=== PATIENT | female | born 1950 | race Caucasian/White ===

== ENCOUNTER 2016-11-12 06:21 | Inpatient (IN) | payer BC ==
--- NOTE | 2016-11-08 14:59 | HP ---
HISTORY AND PHYSICAL: DATE OF OFFICE VISIT: 11/08/16 DATE OF SURGERY: 11/12/16 SURGEON: Virginia Hager MD PROCEDURE: Left total knee arthroplasty CHIEF COMPLAINT: Left knee pain. HISTORY OF PRESENT ILLNESS: Ms. Johnson is a 65-year-old female with complaints of left knee pain. She has failed conservative management. She has elected to proceed with a left total knee arthrop lasty. The surgery is scheduled for 11/12/16. PAST MEDICAL HISTORY: Hypothyroidism. PAST SURGICAL HISTORY: Tonsillectomy, partial thyroidectomy, total hysterectomy, cataract removal. CURRENT MEDICATIONS: 1. Synthroid. 2. Aleve. 3. Pepcid. ALLERGIES: To COMPAZINE. FAMILY HISTORY: Unknown. She is adopted. SOCIAL HISTORY: This is a 65-year-old female, she is . She works as a counselor. She denie s use of drugs and alcohol. She does not smoker. REVIEW OF SYSTEMS: A complete 14-point review of systems was reviewed with the patient, positive fo r hypothyroidism. PHYSICAL EXAMINATION GENERAL: Well-developed, well-nourished, she is in no acute distress. She is alert and oriented x3 . VITAL SIGNS: She stands 5 feet 8 inches tall, weighs 160 pounds. Her blood pressure is 128/84, hea rt rate 65. HEENT: Normocephalic, atraumatic. NECK: Supple. No palpable lymph nodes. Trachea is midline. PULMONARY: Lungs are clear to auscultation bilaterally. CARDIO: Regular rate and rhythm. ABDOMEN: Soft, nontender, nondistended. MUSCULOSKELETAL: Left lower extremity, the skin is intact. There is moderate joint effusion. She has tenderness over the medial and lateral joint line. She has full range of motion of the left kne e. Lower extremity muscle group strengths were intact at 5/5. She has 2+ dorsalis pedis pulses. NEUROLOGIC: Cranial nerves II to XII are intact. ASSESSMENT AND PLAN: Ms. Johnson is a 65-year-old female with complaints of left knee pain second priscilla to advanced osteoarthritis. She has failed conservative management and has elected to proceed w ith a left total knee arthroplasty,which is scheduled for 11/12/[address] Hager discus sed the risks and benefits of the surgery at today's visit and all of her questions were answered. Percocet, Colace and Coumadin were sent to her pharmacy for postoperative pain control and DVT proph ylaxis. She will see Dr. Hager back 2 weeks after the surgery. SEAN GALARZA [id number]/[facility] #: [id number]
[~2016-11-12 06:21] MED LIST: Buffered Lidocaine 1% SYRIN* 3 ML/SYR SYRINGE INTRADERM ONE; Dexamethasone IV* 4 MG/ML 1 ML (4 MG) IV SLOW PU ONE; Ondansetron INJ* 2 MG/ML VIAL IV ONE
[2016-11-12] MEDS ORDERED: ceFAZolin 2 GM PREMIX(*) 2 GM/50 ML BAG IVPB ONE (07:14)
[2016-11-12] MEDS ORDERED: Dexamethasone IV* 4 MG/ML 1 ML (4 MG) ONE (07:14)
[2016-11-12] MEDS ORDERED: Ondansetron INJ* 2 MG/ML VIAL ONE (07:14)
[2016-11-12] MEDS ORDERED: Propofol* 500 MG/50 ML BTL ONE (07:49)
[2016-11-12] MEDS ORDERED: Dexmedetomidine* 200 MCG/2 ML 2 ML VIAL ONE ×2 (07:51→08:11)
[2016-11-12] MEDS ORDERED: Midazolam* 1 MG/ML 2 ML VIAL (2 MG) ONE ×2 (07:54→09:06)
[2016-11-12] MEDS ORDERED: HYDROmorphone* 1 MG/ML 1 ML SYR ONE ×4 (07:54→12:07)
[2016-11-12] MEDS ORDERED: Meperidine SYRINGE* 50 MG/ML ONE (07:54)
[2016-11-12] MEDS ORDERED: fentaNYL* 50 MCG/ML 2 ML VIAL (100 MCG VIAL) ONE ×4 (07:54→10:31)
[2016-11-12] MEDS ORDERED: Morphine PF AMP (0.5MG/ML)* 5 MG/10 ML AMP ONE (07:55)
[2016-11-12] MEDS ORDERED: Bupivacaine 0.5% SDV PF* 30 ML VIAL ONE (08:11)
[2016-11-12] MEDS ORDERED: HYDROmorphone* 1 MG/ML 1 ML SYR IV PRN (08:24)
[2016-11-12] MEDS ORDERED: Ondansetron INJ* 2 MG/ML VIAL IV PRN ×2 (08:24→12:10)
[2016-11-12] MEDS ORDERED: fentaNYL* 50 MCG/ML 2 ML VIAL (100 MCG VIAL) IV PRN (08:24)
[2016-11-12] MEDS ORDERED: DiMENhydriNATE IV* 50 MG/ML VIAL IV PUSH PRN ×2 (08:24→12:10)
[2016-11-12] MEDS ORDERED: Scopolamine 1.5 mg* PATCH TRANSDERM PRN ×2 (08:24→12:10)
[2016-11-12] MEDS ORDERED: Magnesium Hydroxide LIQ* 30 ML UDC PO PRN (10:50)
[2016-11-12] MEDS ORDERED: LACTULOSE* 30 ML UDC PO PRN (10:50)
[2016-11-12] MEDS ORDERED: Polyethylene Glycol 3350* 17 GM PACKET PO PRN (10:50)
[2016-11-12] MEDS ORDERED: Bisacodyl SUPP* 10 MG SUPP PR PRN (10:50)
[2016-11-12] MEDS ORDERED: Propofol* 10 MG/ML 20 ML BTL IV PUSH ONE (11:00)
[2016-11-12] MEDS ORDERED: Lidocaine 2% PF * 5 ML VIAL ONE (11:01)
[2016-11-12] MEDS ORDERED: Sevoflurane* 1 BTL ONE (11:33)
[2016-11-12] MEDS ORDERED: oxyCODONE/Acetamin 5/325 MG* TAB PO PRN (12:10)
[2016-11-12] MEDS ORDERED: Nalbuphine* 20 MG/ML 1 ML VIAL IV PRN (12:10)
[2016-11-12] MEDS ORDERED: diPHENhydraMINE IV* 50 MG/ML 1 ml VIAL (BENADRYL) IV PRN ×2 (12:10→21:10)
[2016-11-12] MEDS ORDERED: Naloxone* 0.4 MG/ML 1 ML VIAL IV PRN (12:10)
--- NOTE | 2016-11-12 13:13 | RAD ---
INDICATION: Left total knee replacement surgery. COMPARISON: Comparison is made with a prior x-ray study of the left knee from July 29 2016. TECHNIQUE: 2 views of the left knee were obtained. FINDINGS: The patient is status post total left knee replacement surgery. The bones and prostheses are in normal alignment. There is a surgical drain present along the anterior aspect of the knee. IMPRESSION: STATUS POST TOTAL LEFT KNEE REPLACEMENT SURGERY.
[2016-11-12] MEDS: Famotidine TAB* 20 MG PO SCH ×2 (16:55→21:17)
[2016-11-12] MEDS ORDERED: Warfarin TAB(*) 6 MG PO ONE (17:00)
[2016-11-12] MEDS: ceFAZolin 1 GM in Dextrose (*) 1 GM/50 ML BAG IVPB SCH (17:02)
[2016-11-12] MEDS ORDERED: Ondansetron TAB* 4 MG PO PRN (21:10)
[2016-11-12] MEDS ORDERED: Acetaminophen TAB* 325 MG PO PRN (21:10)
[2016-11-12] MEDS: Docusate CAP* 100 MG PO SCH (21:18)
[2016-11-12] MEDS ORDERED: Warfarin TAB(*) 2 MG PO ONE (21:58)
[2016-11-12] MEDS: oxyCODONE/Acetamin 5/325 MG* TAB PO PRN (23:21)
[2016-11-13] MEDS: Morphine INJ* 2 MG/ML 1 ML SYRINGE IV PRN ×2 (01:13→14:42)
[2016-11-13] MEDS: ceFAZolin 1 GM in Dextrose (*) 1 GM/50 ML BAG IVPB SCH ×2 (01:17→09:22)
[2016-11-13] MEDS: oxyCODONE/Acetamin 5/325 MG* TAB PO PRN ×5 (03:11→23:18)
[2016-11-13] MEDS: Levothyroxine TAB* 75 MCG TAB PO SCH (05:59)
[2016-11-13 06:00] LABS: Hematocrit 35 % (35-47); Hemoglobin 11.3 g/dl (12.0-16.0)
[2016-11-13 06:24] LABS: Calcium 8.7 mg/dL (8.6-10.3); EGFR African American 121.6 (>60); EGFR Non-African American 94.5 (>60); Potassium 3.9 mmol/L (3.5-5.0)
--- NOTE | 2016-11-13 06:53 | OP ---
OPERATIVE NOTE: DATE OF OPERATION: 11/12/16 DATE OF : 48 ATTENDING SURGEON: Virginia Hager MD DRY PAN OPERATOR: SEAN Montgomery This assistant research scientist did help throughout the procedure for prepping, draping, retraction, manipulation of the leg, and wound closure. ANESTHESIOLOGIST: Hugh Schaefer MD ANESTHESIA: Spinal with adductor nerve block. PRE-OP DIAGNOSIS: Severe end-stage degenerative osteoarthritis of the left knee joint with valgus d eformity. POST-OP DIAGNOSIS: Severe end-stage degenerative osteoarthritis of the left knee joint with valgus deformity. OPERATIVE PROCEDURE: Left total knee arthroplasty. COMPLICATIONS: None. ESTIMATED BLOOD LOSS: 250 cc. TOURNIQUET TIME: 69 minutes. SPECIMEN: Bone and cartilage from the left knee joint, sent to pathology. HARDWARE USED: This is Schaefer and Nephew cemented total knee arthroplasty hardware. For the femur, a size 6, left posterior stabilized, narrow Oxinium Legion femoral component. For the tibia, a size 5 left tibial base plate. For the insert, a 13- mm constrained articular insert, size 5-6. For the patella, a 32-mm 3-peg all-poly patella. BRIEF HISTORY/INDICATION: Ms. Johnson is a 65-year-old female with years of increasingly severe le ft knee pain. She failed conservative treatment with antiinflammatories, pain medications, intraart icular injections, physical therapy, and brace wear. She developed increasingly severe valgus defor mity as well. Radiographs showed severe end-stage arthritis with [id number] contacts on the latera l compartment and valgus deformity. Due to continued pain and decreased quality of life, the patien t elected to undergo left total knee arthroplasty. Informed consent was obtained from the patient. She understood the risks of the procedure included but were not limited to bleeding, infection, josé miguel ge to nearby structures, continued pain, need for further surgery, intraoperative fracture, nerve pa lsy, hardware failure or loosening, knee stiffness, loss of motion, stroke, heart attack, blood clot , and . She wished to proceed. INTRAOPERATIVE FINDINGS: Intraoperatively, the patient was noted to have a 20- degree valgus deform ity to begin with the case. This was corrected to anatomic valgus of 3 to 5 degrees. She had an in competent MCL, although was intact. 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 DESCRIPTION OF PROCEDURE: Ms. Johnson was identified in the preanesthesia unit. Her left lower ext remity was marked as the correct operative site. Informed consent was signed and placed in the arie t. The patient was taken to the operating room and placed under spinal anesthesia with adductor ner ve block. Keller catheter was placed. A tourniquet was placed on the left thigh. Left lower extrem ity was prepped and draped in the usual sterile fashion. Preop time-out was made to correctly ident ayan the patient's side and site. Appropriate perioperative antibiotics were given within 1 hour of incision. Tourniquet was inflated and total tourniquet time for this procedure was 69 minutes. A 14-cm midlin e incision was made with a 10-blade and carried down to the extensor mechanism. A new 10-blade was used to make a standard medial parapatellar arthrotomy. The patella was subluxed laterally. Electr ocautery was used to subperiosteally elevate the soft tissue off the superomedial tibia to the mid s agittal plane. The knee was flexed up. Anterior horn of the lateral meniscus and ACL were sharply released. A drill was used to enter the distal femur. 3-degree distal femoral cutting jig was pinn ed on the distal femur. Lateral femoral condylar hypoplasia was noted and accounted for. Oscillati ng saw was used to make the distal femoral cut. Next, the external rotation guide was placed on the distal femur and pinned into position. The distal femur was sized to a size 6. Size 6 multi-cutti ng jig was placed on the distal femur. Oscillating saw was used to make the appropriate 4 chamfer c uts. The PCL was completely released at this point. Extramedullary tibial cutting guide was pinned on th e proximal tibia. Oscillating saw was used to make a proximal tibial cut perpendicular to the mecha nical axis of the tibia. The bone was carefully removed. Throughout the procedure, the patient was noted to have significant osteopenia. The knee was brought out into full extension. It was noted that the MCL was intact, but was quite l oose. Electrocautery was used to release the capsule along the posterolateral tibia. A 15-blade wa s used to pie-crust the lateral ligaments. Spacer block had good fit with full extension. Medial an d lateral ligamentous balancing was improved, but the MCL laxity remains. Flexion and extension gaps were deemed to be appropriate. A lamina disability insurance hearing officer was placed both mediall y and laterally. Any remaining meniscus was carefully removed with electrocautery. Posterior osteo phytes were removed with a curved osteotome and curette. A trial left, size 6, narrow femoral compo nent was impacted onto the distal femur and had good fit. The box for the posterior stabilized impl ant was prepared using a reamer and box cut osteotome. Next, a size 5 tibial tray trial with an 11- mm insert trial was placed. The knee was taken through range of motion and had full extension to 12 5 degrees of flexion with good patellofemoral tracking. The patella was everted. 9-mm of patellar bone and cartilage was carefully removed using an oscilla ting saw. The patella was sized to a size 32. The 3 peg holes were drilled through the size 32 neil de. A trial 32 patella was placed and the knee was taken through range of motion. There was satisf actory patellofemoral tracking. All trials were carefully removed. The tibia was subluxed anteriorly and sized to a size 5. Proxim al tibia was prepared using a size 5 keel punch. All bony cut surfaces were copiously irrigated wit h sterile saline and dried. The final implants were cemented into place, starting with the tibia, f ollowed by the femur, and last the patella. A 13-mm insert trial was placed while the knee was brou ght out into full extension. Tourniquet was turned down at 69 minutes. Cement was allowed to fully cure and the knee was copiously irrigated with sterile saline. Once the cement was fully cured, the insert trial was removed. Any excess cement was carefully removed from around the implant. Electr ocautery was used to obtain meticulous hemostasis. For the final insert, a 13-mm constrained insert was chosen. This was locked into position on the t ibial tray. Stability of the insert and the tibial tray was checked and rechecked and noted to be s table. Final range of motion was full extension to 130 degrees of flexion with good patellofemoral tracking. The knee was copiously irrigated with sterile saline. The extensor mechanism was closed using inter rupted #1 Vicryl's over a median Hemovac drain. The rest of the incision was closed in a layered fa shion using 0 and 2-0 Vicryl's. Skin was closed using running 3-0 nylon suture. Sterile Xeroform, 4x4's, and Webril were used to cover the incision. James wrap and cold pack were placed over this. The patient's anesthesia was reversed without difficulty. She was taken to the PACU in stable condi tion. Intended weightbearing will be weightbearing as tolerated. Intended DVT prophylaxis will be Coumadin with a Lovenox bridge. [id number]/[facility] #: [id number]
--- NOTE | 2016-11-13 07:44 | PN ---
Progress Note - Progress Note SOAP: Subjective: Pt. is alert, reports pain severe last night and poor sleep. Objective: LLE - drain removed, tip intact with 300 cc ss drainage. distally +df/pf, full sens lt, 2+ dp pulse. Vital Signs: Temp Pulse Resp BP Pulse Ox 97.8 F 78 16 91/56 98 11/13/16 05:52 11/13/16 05:52 11/13/16 05:52 11/13/16 05:52 11/13/16 05:52 Laboratory Results - last 24 hr 11/13/16 11/13/16 11/13/16 05:40 05:40 05:40 Hgb 11.3 L Hct 35 INR (Anticoag Therapy) 1.10 Sodium 134 Potassium 3.9 Chloride 102 Carbon Dioxide 26 Anion Gap 6 BUN 12 Creatinine 0.63 Est GFR ( Amer) 121.6 Est GFR (Non-Af Amer) 94.5 BUN/Creatinine Ratio 19.0 Glucose 144 H Calcium 8.7 Assessment: 65 yo F pod 1 s/p LTKA Plan: wbat lle pt/ot pmru consult today please anticipate 5/5 d/c to home vs snf 8 mg coumadin tonight with lovenox bridge
[2016-11-13] MEDS: oxyCODONE SR TAB(*) 10 MG TAB.SR PO SCH ×2 (07:48→20:01)
[2016-11-13] MEDS: Famotidine TAB* 20 MG PO SCH ×3 (07:49→20:01)
[2016-11-13] MEDS: Docusate CAP* 100 MG PO SCH ×2 (07:49→20:13)
[2016-11-13] MEDS: Enoxaparin(*) 30 MG/0.3 ML SYR SUBCUT SCH (11:52)
[2016-11-13] MEDS ORDERED: Lactated Ringers 500 ml BAG* 500 ML IV ONE (13:51)
[2016-11-13] MEDS ORDERED: Warfarin TAB(*) 4 MG PO ONE (17:00)
[2016-11-13] MEDS: oxyCODONE TAB* 5 MG TAB PO PRN (17:28)
[2016-11-13] MEDS: Docosanol 10%* CREAM 2 GM TUBE TOPICAL PRN ×2 (17:49→23:19)
[2016-11-14] MEDS: oxyCODONE TAB* 5 MG TAB PO PRN ×3 (03:09→22:48)
[2016-11-14] MEDS: Levothyroxine TAB* 75 MCG TAB PO SCH (05:42)
[2016-11-14] MEDS: oxyCODONE/Acetamin 5/325 MG* TAB PO PRN ×3 (05:42→17:54)
[2016-11-14 06:07] LABS: Hematocrit 34 % (35-47); Mean Platelet Volume 9 um3 (7.4-10.4)
[2016-11-14] MEDS ORDERED: Cyclobenzaprine TAB* 10 MG PO PRN (07:42)
[2016-11-14] MEDS: Famotidine TAB* 20 MG PO SCH ×3 (08:26→20:15)
[2016-11-14] MEDS: oxyCODONE SR TAB(*) 10 MG TAB.SR PO SCH ×2 (08:26→20:15)
--- NOTE | 2016-11-14 08:26 | PN ---
Progress Note - Progress Note SOAP: Subjective: [65 yo F pod 2 s/p LTKA. Patient reports muscle spasms overnight. VSS, afebrile ] Objective: [General- well appearing, NAD. AOx3 MSK- moderate swelling around K knee, I C/D/I, + DF/PF NVI ] Vital Signs Temp 97.9 F 11/14/16 03:12 Pulse 94 11/14/16 03:12 Resp 19 11/14/16 07:42 BP 121/65 11/14/16 03:12 Pulse Ox 96 11/14/16 03:12 Intake & Output 11/13/16 11/14/16 11/14/16 18:59 06:59 18:59 Intake Total 1220 900 Output Total 790 600 Balance 430 300 Intake: IV Fluids 982 500 LR 982 500 IVPB 118 Kefzol 118 Oral 120 400 Output: Urine 750 600 Keller 40 Laboratory Results - last 24 hr 11/14/16 11/14/16 05:41 05:41 Hgb 11.0 L Hct 34 L Plt Count 231 MPV 9 INR (Anticoag Therapy) 1.34 H Assessment: [65 yo F pod 2 s/p LTKA. ] Plan: [- Coumadin dosing, contine lovenox. - Likely D/C to SNF tomorrow - Continue pain regimen, add Flexeril for spasms PRN ] Active Medications Generic Name Dose Route Start Last Admin Trade Name Freq PRN Reason Stop Dose Admin Acetaminophen 650 mg 11/12/16 21:10 Tylenol Tab* PO Q4H PRN PAIN OR TEMPERATURE Bisacodyl 10 mg 11/12/16 10:50 Dulcolax Supp* [place] DAILY PRN constipation Cyclobenzaprine HCl 10 mg 11/14/16 07:42 Flexeril Tab* PO TID PRN muscle spasm Diphenhydramine HCl 12.5 mg 11/12/16 21:10 Benadryl Iv* IV Q6H PRN PRURITIS Docosanol 1 applic 11/13/16 15:00 11/13/16 23:19 Abreva 10%* TOPICAL 1 applic BID PRN Administration MD AGUILERA Docusate Sodium 100 mg 11/12/16 21:00 11/13/16 20:13 Colace Cap* PO Not Given BID NAVDEEP Enoxaparin Sodium 30 mg 11/13/16 12:00 11/13/16 11:52 Lovenox(*) SUBCUT 30 mg Q24H NAVDEEP Administration Famotidine 20 mg 11/12/16 14:00 11/13/16 20:01 Pepcid Tab* PO 20 mg TID NAVDEEP Administration Lactated Ringer's 1,000 mls @ 100 mls/hr 11/12/16 21:10 11/13/16 01:19 Lactated Ringers 1000 Ml Bag* IV 100 mls/hr PER RATE NAVDEEP Administration Lactulose 30 ml 11/12/16 10:50 Lactulose* PO Q6H PRN constipation Levothyroxine Sodium 75 mcg 11/13/16 06:00 11/14/16 05:42 Synthroid Tab* PO 75 mcg 0600 NAVDEEP Administration Magnesium Hydroxide 30 ml 11/12/16 10:50 Milk Of Magnesia Liq* PO Q6H PRN constipation Morphine Sulfate 2 mg 11/12/16 21:10 11/13/16 14:42 Morphine Inj (Syringe)* IV 2 mg Q2H PRN Administration PAIN Ondansetron HCl 4 mg 11/12/16 21:10 Zofran Tab* PO Q6H PRN NAUSEA Oxycodone HCl 10 mg 11/12/16 21:10 11/14/16 03:09 Roxycodone Tab* PO 10 mg Q4H PRN Administration SEVERE PAIN Oxycodone HCl 10 mg 11/13/16 09:00 11/13/16 20:01 Oxycontin(*) PO 10 mg Q12HR NAVDEEP Administration Oxycodone/Acetaminophen 1 tab 11/12/16 21:10 Percocet 5/325 Tab* PO Q3H PRN PAIN - MODERATE Oxycodone/Acetaminophen 2 tab 11/12/16 21:10 11/14/16 05:42 Percocet 5/325 Tab* PO 2 tab Q3H PRN Administration PAIN - MODERATE Pharmacy Profile Note 1 note 11/15/16 12:10 Scopolomine Patch Remove* PATCH OFF Q72H [facility] Pharmacy Profile Note 1 note 11/12/16 17:00 11/13/16 17:35 Coumadin Daily Reminder* FOLLOW UP 1 note 1700 [facility] Administration Polyethylene Glycol/Electrolytes 17 gm 11/12/16 10:50 Miralax* PO DAILY PRN Constipation Scopolamine 1 patch 11/12/16 12:10 Transderm-Scop 1.5 Mg Patch* TRANSDERM Q72H PRN nausea Warfarin Sodium 8 mg 11/14/16 17:00 Coumadin Tab(*) PO 11/14/16 17:01 ONCE@1700 ONE Protocol
[2016-11-14] MEDS: Docusate CAP* 100 MG PO SCH ×2 (08:29→20:16)
[2016-11-14] MEDS: Enoxaparin(*) 30 MG/0.3 ML SYR SUBCUT SCH (12:53)
[2016-11-14] MEDS ORDERED: Warfarin TAB(*) 4 MG PO ONE (17:00)
[2016-11-14] MEDS: Docosanol 10%* CREAM 2 GM TUBE TOPICAL PRN (20:48)
[2016-11-15] MEDS: oxyCODONE/Acetamin 5/325 MG* TAB PO PRN ×3 (01:50→11:42)
[2016-11-15] MEDS: Levothyroxine TAB* 75 MCG TAB PO SCH (05:09)
[2016-11-15 06:00] LABS: Hematocrit 32 % (35-47); Hemoglobin 10.5 g/dl (12.0-16.0)
[2016-11-15] MEDS: Docusate CAP* 100 MG PO SCH (08:17)
[2016-11-15 08:20] VITALS: BP 130/64
[2016-11-15] MEDS: Famotidine TAB* 20 MG PO SCH (08:20)
[2016-11-15] MEDS: oxyCODONE SR TAB(*) 10 MG TAB.SR PO SCH (08:20)
[2016-11-15] MEDS ORDERED: Scopolomine PATCH Remove* 1 NOTE MISC PATCH OFF ONE (08:24)
--- NOTE | 2016-11-15 08:56 | PN ---
Progress Note - Progress Note SOAP: Subjective: 65 y/o female s/p L TKA by Dr Hager 11/12/2016. Patient reports feeling well, overnight pain control was difficult however manageable. + L knee pain, posterior. VSS, afebrile overnight. Objective: General- Well appearing, sitting comfortably in bed MSK- Dressing removed, wound with minimal weeping from suture site laterally, mild erythema around incision medially, no purulent drainage, minimal warmth. ROM 0-10 AROM. PT 2+, neg homans, + DF/PF Vital Signs Temp 97.8 F 11/15/16 08:20 Pulse 102 11/15/16 08:20 Resp 16 11/15/16 08:21 BP 130/64 11/15/16 08:20 Pulse Ox 100 11/15/16 08:20 Intake & Output 11/14/16 11/15/16 11/15/16 18:59 06:59 18:59 Intake Total 590 750 Output Total 1300 1300 Balance -710 -550 Intake: Oral 590 750 Output: Urine 1300 1300 Laboratory Results - last 24 hr 11/15/16 11/15/16 05:40 05:40 Hgb 10.5 L Hct 32 L INR (Anticoag Therapy) 1.71 H Assessment: 65 y/o female s/p L TKA by Dr Hager 11/12/2016. Plan: - D/C to SNF today - Follow up with DR. Hager within 10-14 days - Coumadin 6mg tonight, lovenox today - Continue PT/ OT as shown Active Medications Generic Name Dose Route Start Last Admin Trade Name Freq PRN Reason Stop Dose Admin Acetaminophen 650 mg 11/12/16 21:10 Tylenol Tab* PO Q4H PRN PAIN OR TEMPERATURE Bisacodyl 10 mg 11/12/16 10:50 Dulcolax Supp* [place] DAILY PRN constipation Cyclobenzaprine HCl 10 mg 11/14/16 07:42 11/15/16 00:03 Flexeril Tab* PO 10 mg TID PRN Administration muscle spasm Diphenhydramine HCl 12.5 mg 11/12/16 21:10 Benadryl Iv* IV Q6H PRN PRURITIS Docosanol 1 applic 11/13/16 15:00 11/14/16 20:48 Abreva 10%* TOPICAL 1 applic BID PRN Administration MD DISCRETION Docusate Sodium 100 mg 11/12/16 21:00 11/15/16 08:17 Colace Cap* PO Not Given BID REPLACED BY [facility] Famotidine 20 mg 11/12/16 14:00 11/15/16 08:20 Pepcid Tab* PO 20 mg TID NAVDEEP Administration Lactated Ringer's 1,000 mls @ 100 mls/hr 11/12/16 21:10 11/13/16 01:19 Lactated Ringers 1000 Ml Bag* IV 100 mls/hr PER RATE NAVDEEP Administration Lactulose 30 ml 11/12/16 10:50 Lactulose* PO Q6H PRN constipation Levothyroxine Sodium 75 mcg 11/13/16 06:00 11/15/16 05:09 Synthroid Tab* PO 75 mcg 0600 [facility]EP Administration Magnesium Hydroxide 30 ml 11/12/16 10:50 Milk Of Magnesia Liq* PO Q6H PRN constipation Morphine Sulfate 2 mg 11/12/16 21:10 11/13/16 14:42 Morphine Inj (Syringe)* IV 2 mg Q2H PRN Administration PAIN Ondansetron HCl 4 mg 11/12/16 21:10 Zofran Tab* PO Q6H PRN NAUSEA Oxycodone HCl 10 mg 11/12/16 21:10 11/14/16 22:48 Roxycodone Tab* PO 10 mg Q4H PRN Administration SEVERE PAIN Oxycodone HCl 10 mg 11/13/16 09:00 11/15/16 08:20 Oxycontin(*) PO 10 mg Q12HR [facility]EP Administration Oxycodone/Acetaminophen 1 tab 11/12/16 21:10 11/15/16 08:21 Percocet 5/325 Tab* PO 1 tab Q3H PRN Administration PAIN - MODERATE Oxycodone/Acetaminophen 2 tab 11/12/16 21:10 11/15/16 01:50 Percocet 5/325 Tab* PO 2 tab Q3H PRN Administration PAIN - MODERATE Pharmacy Profile Note 1 note 11/15/16 12:10 Scopolomine Patch Remove* PATCH OFF Q72H REPLACED BY [facility] Pharmacy Profile Note 1 note 11/12/16 17:00 11/14/16 18:02 Coumadin Daily Reminder* FOLLOW UP 1 note 1700 REPLACED BY [facility] Administration Polyethylene Glycol/Electrolytes 17 gm 11/12/16 10:50 Miralax* PO DAILY PRN Constipation Scopolamine 1 patch 11/12/16 12:10 Transderm-Scop 1.5 Mg Patch* TRANSDERM Q72H PRN nausea Warfarin Sodium 6 mg 11/15/16 17:00 Coumadin Tab(*) PO 11/15/16 17:01 ONCE@1700 ONE Protocol
--- NOTE | 2016-11-15 09:05 | DS ---
Discharge Summary Date of Admission: 11/12/2016 Date of Discharge: 11/15/2016 Provider: Dr. Coreen Hager Principle Diagnosis: Left knee pain Secondary Diagnoses: See H&P Principle procedure: Left total knee arthroplasty Consultations: PT, OT HPI: Refer to H&P Hospital Course: The patient was admitted on 11/12/2016 and underwent a left total knee replacement. She tolerated the procedure well and there were no complications. The patient had spinal anesthesia and was quite comfortable in the immediate postoperative period. On POD#2 the patients dressing was CDI, was neurovascularly intact with good sensation distal to the left knee. She could demonstrate dorsi and plantar flexion with good strength. Participation in physical and occupational therapy was begun. Pain management was adequate with percocet and oxycontin. On POD#2 the urinary catheter was discontinued and the patient was able to void spontaneously. The dressing was changed and the wound was found to be benign with minimal drainage and erythema. Vital signs were stable and the patient was afebrile. POD#3 bowel and bladder had normalized and the patient was cleared by physical therapy for safe discharge. She will continue with the exercises learned with physical therapy and arrangements were made for visiting home physical therapy as well. At discharge the H&H was 10.5/32, vital signs were stable and the INR value was 1.71. The patient was discharged with a prescription for Coumadin 2 mg. The INR will be monitored on Mondays and and the Coumadin dose adjusted accordingly. The patient will resume the home medications as indicated in the discharge instructions. She will follow up with Dr. Hager in 10-14 days. Medications at discharge: Percocet 5/325 mg 1-2 tabs po Q4-6 hours prn pain Coumadin 2 mg 1-3 tablets by mouth at 5 pm daily as directed Colace 100 mg 1 po BID Oxycontin 10mg twice daily Flexeril 10 mg TID PRN Dulcolax supp. PRN daily Pepcid 20mg TID Synthroid 88 mcg PO daily Condition: Stable Disposition: Home with home health PT and PT/INR draws on Friday and Follow up: Patient will follow up with Dr. Hager in 10-14 days at [facility] Orthopedics Coumadin dosin/5- 6mg 5/6- 6mg 5/7- 4mg 5/8- INR draw Vital Signs Temp 97.8 F 05/05/17 08:20 Pulse 102 11/15/16 08:20 Resp 16 11/15/16 08:21 BP 130/64 11/15/16 08:20 Pulse Ox 100 11/15/16 08:20 Intake & Output 11/14/16 11/15/16 11/15/16 18:59 06:59 18:59 Intake Total 590 750 Output Total 1300 1300 Balance -710 -550 Intake: Oral 590 750 Output: Urine 1300 1300 Laboratory Results - last 24 hr 11/15/16 11/15/16 05:40 05:40 Hgb 10.5 L Hct 32 L INR (Anticoag Therapy) 1.71 H Active Medications Generic Name Dose Route Start Last Admin Trade Name Freq PRN Reason Stop Dose Admin Acetaminophen 650 mg 11/12/16 21:10 Tylenol Tab* PO Q4H PRN PAIN OR TEMPERATURE Bisacodyl 10 mg 11/12/16 10:50 Dulcolax Supp* [place] DAILY PRN constipation Cyclobenzaprine HCl 10 mg 11/14/16 07:42 11/15/16 00:03 Flexeril Tab* PO 10 mg TID PRN Administration muscle spasm Diphenhydramine HCl 12.5 mg 11/12/16 21:10 Benadryl Iv* IV Q6H PRN PRURITIS Docosanol 1 applic 11/13/16 15:00 11/14/16 20:48 Abreva 10%* TOPICAL 1 applic BID PRN Administration MD AGUILERA Docusate Sodium 100 mg 11/12/16 21:00 11/15/16 08:17 Colace Cap* PO Not Given BID NAVDEEP Famotidine 20 mg 11/12/16 14:00 11/15/16 08:20 Pepcid Tab* PO 20 mg TID NAVDEEP Administration Lactated Ringer's 1,000 mls @ 100 mls/hr 11/12/16 21:10 11/13/16 01:19 Lactated Ringers 1000 Ml Bag* IV 100 mls/hr PER RATE NAVDEEP Administration Lactulose 30 ml 11/12/16 10:50 Lactulose* PO Q6H PRN constipation Levothyroxine Sodium 75 mcg 11/13/16 06:00 11/15/16 05:09 Synthroid Tab* PO 75 mcg 0600 NAVDEEP Administration Magnesium Hydroxide 30 ml 11/12/16 10:50 Milk Of Magnesia Liq* PO Q6H PRN constipation Morphine Sulfate 2 mg 11/12/16 21:10 11/13/16 14:42 Morphine Inj (Syringe)* IV 2 mg Q2H PRN Administration PAIN Ondansetron HCl 4 mg 11/12/16 21:10 Zofran Tab* PO Q6H PRN NAUSEA Oxycodone HCl 10 mg 11/12/16 21:10 11/14/16 22:48 Roxycodone Tab* PO 10 mg Q4H PRN Administration SEVERE PAIN Oxycodone HCl 10 mg 11/13/16 09:00 11/15/16 08:20 Oxycontin(*) PO 10 mg Q12HR NAVDEEP Administration Oxycodone/Acetaminophen 1 tab 11/12/16 21:10 11/15/16 08:21 Percocet 5/325 Tab* PO 1 tab Q3H PRN Administration PAIN - MODERATE Oxycodone/Acetaminophen 2 tab 11/12/16 21:10 11/15/16 01:50 Percocet 5/325 Tab* PO 2 tab Q3H PRN Administration PAIN - MODERATE Pharmacy Profile Note 1 note 11/15/16 12:10 Scopolomine Patch Remove* PATCH OFF Q72H [facility] Pharmacy Profile Note 1 note 11/12/16 17:00 11/14/16 18:02 Coumadin Daily Reminder* FOLLOW UP 1 note 1700 [facility] Administration Polyethylene Glycol/Electrolytes 17 gm 11/12/16 10:50 Miralax* PO DAILY PRN Constipation Scopolamine 1 patch 11/12/16 12:10 Transderm-Scop 1.5 Mg Patch* TRANSDERM Q72H PRN nausea Warfarin Sodium 6 mg 11/15/16 17:00 Coumadin Tab(*) PO 11/15/16 17:01 ONCE@1700 ONE Protocol
[2016-11-15] MEDS ORDERED: Scopolomine PATCH Remove* 1 NOTE MISC PATCH OFF SCH (12:10)
[2016-11-15] MEDS ORDERED: Warfarin TAB(*) 6 MG PO ONE (17:00)
== END 2016-11-15 11:40 | disposition home health service (06) | DRG 302 ==
LOC: AA 06:21 → SSU 15:09
PROVIDERS: ADMIT Orthopaedic Surgery Adult Reconstructive Orthopaedic Surgery; ATTEND Orthopaedic Surgery Adult Reconstructive Orthopaedic Surgery
PROC: 0SRD0J9 Replacement of Left Knee Joint with Synthetic Substitute, Cemented, Open Approach (ICD-10-PCS; principal; 2016-11-12 09:00)
DX: M17.12 Unilateral primary osteoarthritis, left knee (principal); E03.9 Hypothyroidism, unspecified; Z79.01 Long term (current) use of anticoagulants; Z90.710 Acquired absence of both cervix and uterus; Z98.49 Cataract extraction status, unspecified eye; Z88.8 Allergy status to other drugs, medicaments and biological substances; M62.838 Other muscle spasm; K21.9 Gastro-esophageal reflux disease without esophagitis; G43.909 Migraine, unspecified, not intractable, without status migrainosus; M21.062 Valgus deformity, not elsewhere classified, left knee; Q72.892 Other reduction defects of left lower limb
CPT/HCPCS: 36415; 80048; 85014; 85018; 85049; 85610; 88305; 88311; A9270-GY; C1776; J0690; J1100; J1170; J1650; J2250; J2270; J2405; J2704; J3010

== ENCOUNTER 2017-11-18 07:27 | Inpatient (IN) | payer BC ==
--- NOTE | 2017-11-07 14:55 | HP ---
PREOPERATIVE HISTORY AND PHYSICAL: DATE OF SURGERY: 11/18/17 DATE OF OFFICE VISIT: 11/07/17 ATTENDING SURGEON: Virginia Hager MD * (DICTATED BY SEAN RG) PROCEDURE: Right total knee replacement. CHIEF COMPLAINT: Right knee pain. HISTORY OF PRESENT ILLNESS: Ms. Johnson is a 66-year-old female who presents to the clinic for right knee pain due to end-stage osteoarthritis. She has failed conservative measures and agreed to undergo right total knee replacement with Dr. Hager on 11/18/17. PAST MEDICAL HISTORY: 1. Hypothyroidism. 2. Migraine. PAST SURGICAL HISTORY: 1. Tonsillectomy. 2. Partial left lobe thyroidectomy. 3. D and C. 4. Total hysterectomy. 5. Cataract removal of bilateral eyes. 6. Left total knee replacement. The patient states that she has significant nausea with anesthesia, but she has a template that can be referred to. She is unable to take COMPAZINE due to an allergy that causes dystonia. MEDICATIONS: 1. Amoxicillin 500 mg, take 4 pills 1 hour prior to dental or GI procedures. 2. Naproxen 500 mg 1 by mouth twice a day for pain. 3. Synthroid 50 mcg 1 by mouth daily. 4. Pepcid up to 60 mg daily as needed. ALLERGIES: COMPAZINE. FAMILY HISTORY: She is adopted. Unknown family history. SOCIAL HISTORY: She is . She is a counselor. She denies alcohol use. She denies tobacco use. She denies illegal drug use. REVIEW OF SYSTEMS: 14-point review of systems was reviewed with the patient. Positive for current complaint, otherwise negative. Denies chest pain, shortness of breath, fever, chills, history of DVT or PE, history of bleeding disorder, history of hep C or HIV. PHYSICAL EXAMINATION GENERAL: A 66-year-old well-developed, well-nourished female, in no acute distress. Alert and oriented x3. Appropriate mood and affect. Appropriate balance and coordination of the lower extremities. VITAL SIGNS: Height 68, weight 165. Pulse 84, blood pressure 138/80. BMI 25.1. HEENT: Normocephalic, atraumatic. PERRLA. Throat clear. NECK: Supple. PULMONARY: Lungs clear to auscultation bilaterally. No wheezing, rhonchi, or rales. CARDIO: Regular rate and rhythm. S1 and S2. No murmurs, gallops, or rubs. No edema. ABDOMEN: Positive bowel sounds, soft, nontender. MUSCULOSKELETAL: Right lower extremity skin is intact. No abrasions or open wounds. A 15 degrees valgus deformity that corrects passively about 5 degrees. MCL laxity with endpoint 5 to 125 degrees of motion. Stable varus and valgus stress. No palpable masses. No hyperreflexia. +5/5 strength to ankle dorsiflexion and plantar flexion. +2 DP pulse. Sensation is intact to light touch distally. NEURO: Alert and oriented x3. Cranial nerves grossly intact. Sensation is intact to light touch. DIAGNOSTIC STUDIES: Multiple view x-rays of the right knee revealed severe end - stage osteoarthritis with valgus deformity, [id number] contact, tricompartmental osteophyte formation, joint space narrowing, subchondral sclerosis. IMPRESSION: End-stage right knee osteoarthritis. PLAN: The patient is scheduled to undergo a right total knee replacement with Dr. Hager on 11/18/17. She will return to the office 10 to 14 days postop for followup and suture removal. Percocet will be used for postop pain management and either Coumadin or aspirin will be used for DVT prophylaxis postoperatively. SEAN RG [id number]/CPS #: [id number] MTDD
[~2017-11-18 07:27] MED LIST changes: +Acetaminophen IV 1GM/100ML * 1,000 MG/100 ML VIAL IVPB ONE; +Buffered Lidocaine 0.9% SYRIN* 5 ML/SYR SYRINGE INTRADERM ONE; -Buffered Lidocaine 1% SYRIN* 3 ML/SYR SYRINGE INTRADERM ONE; +Famotidine TAB* 20 MG PO ONE; +Gabapentin CAP(*) 300 MG PO ONE; +celeCOXIB CAP* 200 MG PO ONE
[2017-11-18] MEDS ORDERED: ceFAZolin 2 GM PREMIX (*) 2 GM/50 ML BAG IVPB ONE (07:58)
[2017-11-18] MEDS ORDERED: celeCOXIB CAP* 100 MG ONE (07:58)
[2017-11-18] MEDS ORDERED: Famotidine TAB* 20 MG ONE (07:58)
[2017-11-18] MEDS ORDERED: Dexamethasone IV* 4 MG/ML 1 ML (4 MG) ONE (07:58)
[2017-11-18] MEDS ORDERED: Scopolamine 1.5 mg* PATCH ONE (07:58)
[2017-11-18] MEDS ORDERED: Midazolam* 1 MG/ML 10 ML VIAL (10 MG) ONE (08:07)
[2017-11-18] MEDS ORDERED: ROPIVACAINE 5 MG/ML 30 ML BTL (0.5%) ONE (08:54)
[2017-11-18] MEDS ORDERED: Gabapentin CAP(*) 300 MG ONE (08:55)
[2017-11-18] MEDS ORDERED: Acetaminophen IV 1GM/100ML * 100 ML ONE (08:55)
[2017-11-18] MEDS ORDERED: Bupivacaine 0.25% SDV* 30 ML ONE (10:21)
[2017-11-18] MEDS ORDERED: fentaNYL* 50 MCG/ML 2 ML VIAL (100 MCG VIAL) IV PRN (10:23)
[2017-11-18] MEDS ORDERED: Ondansetron INJ* 2 MG/ML VIAL IV PRN ×2 (10:23→10:55)
[2017-11-18] MEDS ORDERED: Naloxone* 0.4 MG/ML 1 ML VIAL IV PRN (10:23)
[2017-11-18] MEDS ORDERED: HYDROmorphone INJ* 1 MG/ML CARPUJECT SYRINGE IV PRN (10:23)
[2017-11-18] MEDS ORDERED: DiMENhydriNATE IV* 50 MG/ML VIAL IV PUSH PRN (10:23)
[2017-11-18] MEDS ORDERED: Propofol* 10 MG/ML 20 ML BTL IV PUSH ONE (10:41)
[2017-11-18] MEDS ORDERED: Bisacodyl SUPP* 10 MG SUPP PR PRN (10:55)
[2017-11-18] MEDS ORDERED: Morphine VIAL* 4 MG/ML VIAL (1 ml vial) IV PRN (10:55)
[2017-11-18] MEDS ORDERED: Ondansetron TAB* 4 MG PO PRN (10:55)
[2017-11-18] MEDS ORDERED: Magnesium Hydroxide LIQ* 30 ML UDC PO PRN (10:55)
[2017-11-18] MEDS ORDERED: Acetaminophen TAB* 325 MG PO PRN (10:55)
[2017-11-18] MEDS ORDERED: diPHENhydraMINE IV* 50 MG/ML 1 ml VIAL (BENADRYL) IV PRN (10:55)
[2017-11-18] MEDS ORDERED: Polyethylene Glycol 3350* 17 GM PACKET PO PRN (10:55)
[2017-11-18] MEDS ORDERED: oxyCODONE/Acetamin 5/325 MG* TAB PO PRN (10:55)
--- NOTE | 2017-11-18 14:43 | RAD ---
Indication: Right total knee replacement. 2 views of the right knee demonstrates bipolar right knee arthroplasty in satisfactory position. No loosening is noted. Drainage catheter is in place. IMPRESSION: Bipolar knee arthroplasty in satisfactory position.
[2017-11-18] MEDS: oxyCODONE TAB* 5 MG TAB PO PRN ×2 (16:42→20:30)
[2017-11-18] MEDS ORDERED: Warfarin TAB(*) 6 MG PO ONE (17:00)
[2017-11-18] MEDS: ceFAZolin 1 GM in Dextrose (*) 1 GM/50 ML BAG IVPB SCH (17:43)
[2017-11-18] MEDS: Docusate CAP* 100 MG PO SCH (20:29)
[2017-11-18] MEDS: Cyclobenzaprine TAB* 10 MG PO PRN (20:30)
[2017-11-18] MEDS: Magnesium Hydroxide LIQ* 30 ML UDC PO SCH (20:32)
[2017-11-18] MEDS: HYDROmorphone INJ* 2 MG/ML CARPUJECT SYRINGE IV PRN (23:28)
[2017-11-19] MEDS: ceFAZolin 1 GM in Dextrose (*) 1 GM/50 ML BAG IVPB SCH ×2 (01:37→09:52)
[2017-11-19] MEDS: oxyCODONE TAB* 5 MG TAB PO PRN ×3 (05:09→15:43)
[2017-11-19] MEDS: Levothyroxine TAB* 50 MCG TAB PO SCH (05:10)
[2017-11-19] MEDS: Cyclobenzaprine TAB* 10 MG PO PRN ×3 (05:10→22:06)
[2017-11-19 05:31] LABS: Hematocrit 36 % (35-47); Mean Platelet Volume 8.2 um3 (7.4-10.4); Platelet Count 234 10^3/ul (150-450)
[2017-11-19 05:42] LABS: INR 1.03 (0.77-1.02)
[2017-11-19 05:49] LABS: EGFR Non-African American 117.6 (>60)
[2017-11-19] MEDS ORDERED: Famotidine TAB* 20 MG PO PRN (08:19)
[2017-11-19] MEDS: Magnesium Hydroxide LIQ* 30 ML UDC PO SCH ×2 (09:52→19:52)
[2017-11-19] MEDS: Docusate CAP* 100 MG PO SCH ×3 (09:52→20:02)
--- NOTE | 2017-11-19 11:29 | PN ---
Progress Note - Progress Note Date of Service: 11/19/17 SOAP: Subjective: []Patient seen at bedside. Her knee pain is relatively well controlled, though she is quite concerned about what pain medications she should be on. Objective: [] Vital Signs Temp 98.6 F 11/19/17 07:21 Pulse 74 11/19/17 07:21 Resp 18 11/19/17 10:03 BP 114/69 11/19/17 07:21 Pulse Ox 98 11/19/17 07:21 Intake & Output 11/18/17 11/19/17 11/19/17 18:59 06:59 18:59 Intake Total 3135 1520 1660 Output Total 1999 3375 500 Balance 1135 -1855 1160 Weight 212 lb Intake: IV Fluids 2400 1605 LR 2350 1605 NS 50ML, Cefazolin 2G 50 Medicated IV 55 Cefazolin 55 Oral 735 1520 Output: Urine 500 Keller 2000 3375 Other: Estimated Void Medium # Voids 1 Laboratory Last Values Hgb 12.0 g/dl (12.0-16.0) 11/19/17 05:03 Hct 36 % (35-47) 11/19/17 05:03 Plt Count 234 10^3/ul (150-450) 11/19/17 05:03 MPV 8.2 um3 (7.4-10.4) 11/19/17 05:03 INR (Anticoag Therapy) 1.03 (0.77-1.02) H 11/19/17 05:03 Sodium 138 mmol/L (139-145) L 11/19/17 05:03 Potassium 4.3 mmol/L (3.5-5.0) 11/19/17 05:03 Chloride 105 mmol/L (101-111) 11/19/17 05:03 Carbon Dioxide 26 mmol/L (22-32) 11/19/17 05:03 Anion Gap 7 mmol/L (2-11) 11/19/17 05:03 BUN 10 mg/dL (6-24) 11/19/17 05:03 Creatinine 0.52 mg/dL (0.51-0.95) 11/19/17 05:03 Est GFR ( Amer) 151.3 (>60) 11/19/17 05:03 Est GFR (Non-Af Amer) 117.6 (>60) 11/19/17 05:03 BUN/Creatinine Ratio 19.2 (8-20) 11/19/17 05:03 Glucose 118 mg/dL (70-100) H 11/19/17 05:03 Calcium 8.9 mg/dL (8.6-10.3) 11/19/17 05:03 General: Well appearing, NAD RLE: Drain pulled with tip intact, tolerated well by patient. Dressing CDI. Thigh is soft. DF/PF intact. Sensation intact distally. DP 2+. Capillary refill less than two seconds distally. BL LE: Calves supple and nontender without erythema, edema or palpable cords. Assessment: []SP right total knee arthroplasty Plan: []WBAT PT/OT Lovenox, coumadin 6 mg today Explained transition of IV dilaudid which was an anesthesia order to IV morphine which was an orthopedic order beginning after anesthesia orders timed out. She prefers IV dilaudid for breakthrough severe pain and will use this rather than IV morphine. Home dose of famotidine resumed
[2017-11-19] MEDS: HYDROmorphone INJ* 2 MG/ML CARPUJECT SYRINGE IV PRN ×3 (11:34→23:13)
[2017-11-19] MEDS: Famotidine TAB* 20 MG PO SCH ×2 (14:15→16:57)
[2017-11-19] MEDS: Enoxaparin(*) 30 MG/0.3 ML SYR SUBCUT SCH (14:16)
[2017-11-19] MEDS ORDERED: Warfarin TAB(*) 6 MG PO SCH (17:00)
[2017-11-19] MEDS: oxyCODONE/Acetamin 5/325 MG* TAB PO PRN ×2 (17:53→22:06)
--- NOTE | 2017-11-19 18:51 | OP ---
CONTINUATION ADDENDUM NOW INCLUDED ON THIS REPORT DATE OF OPERATION: 11/18/17 - ROOM #333 DATE OF : 48 SURGEON: Virgniia Hager MD HOISTING PILE DRIVING ENGINEER: Sveta López PA-C. Ms. López did help throughout the procedure with preparation of the leg, wound retraction, manipulation of the knee and wound closure. ANESTHESIOLOGIST: Dr. Clayton. ANESTHESIA: Spinal. PRE-OP DIAGNOSIS: Severe end-stage degenerative osteoarthritis of the right knee joint with valgus deformity. POST-OP DIAGNOSIS: Severe end-stage degenerative osteoarthritis of the right knee joint with valgus deformity. OPERATIVE PROCEDURE: Right total knee arthroplasty. TOURNIQUET TIME: 55 minutes. COMPLICATIONS: None. ESTIMATED BLOOD LOSS: 200 cc. SPECIMENS: Bone and cartilage from the right knee joint sent to Pathology. BRIEF HISTORY/INDICATIONS: Ms. Johnson is a 66-year-old female with years of increasingly severe right knee pain and valgus deformity. Radiographs showed [id number] arthritis. She failed conservative treatment with anti- inflammatories, pain medication, intraarticular injection and physical therapy. Due to continued pain and decreased quality of life, she elected to undergo right total knee arthroplasty. Informed consent was obtained from the patient. She understood the risks of surgery including but were not limited to bleeding, infection, damage to nearby structures, continued pain, need for further surgery, intraoperative fracture, nerve palsy, hardware failure or loosening, knee stiffness, loss of motion, stroke, heart attack, blood clot and . She wished to proceed. CONTINUATION ADDENDUM: HARDWARE USED: This is cemented [employer] total knee arthroplasty hardware. Two packages of Simplex bone cement. For the femur, a size 6 narrow right posterior stabilized Legion Oxinium femoral component. For the tibia, a size 5 right tibial base plate. For the insert, a 9-mm constrained articular insert size 5/6 and for the patella, a 32-mm three-peg all-poly patella. INTRAOPERATIVE FINDINGS: Intraoperatively, the patient was noted to have severe end-stage arthritis with tri-compartmental involvement. She had lateral femoral condylar hypoplasia. Preop valgus deformity was 15 degrees and the lateral ligament contracture was quite significant. DESCRIPTION OF THE PROCEDURE: Ms. Johnson was identified in the preanesthesia unit. Her right lower extremity was marked as the correct operative site. Informed consent was signed and placed in the chart. The patient was taken to the operating room and placed under spinal anesthesia. A Keller catheter was placed. Tourniquet was placed on the right thigh. Right lower extremity was prepped and draped in the usual sterile fashion. Preop time-out was made to correctly identify the patient's side and site. Appropriate perioperative antibiotics were given within 1 hour of incision. Tourniquet was inflated and total tourniquet time for this procedure was 55 minutes. A midline incision was made with a 10 blade and carried down to the extensor mechanism. A new 10 blade was used make a standard medial parapatellar arthrotomy. Patella was subluxed laterally. Electrocautery was used to subperiosteally elevate the soft tissue off the superomedial tibia to the mid sagittal plane. The knee was flexed up. The anterior horn of the lateral meniscus and ACL were sharply released. A drill was used to enter the distal femur. Intramedullary distal femoral cutting guide was pinned on the distal femur. Oscillating saw was used to make the distal femoral cut. Next, the external rotation guide was pinned on the distal femur. The distal femur was sized to a size 6. Size 6 multi-cutting jig was pinned on the distal femur. Oscillating saw was used to make the appropriate chamfer cuts. Next, the PCL was completely released. The tibia was subluxed anteriorly. Intramedullary tibial cutting guide was pinned on the proximal tibia. Oscillating saw was used to make the appropriate proximal tibial cut. The knee was brought out into full extension. It was noted that there was significant tightness laterally and laxity medially. Electrocautery was used to release capsule along the posterolateral tibia. A 15 blade was used to perform a pie-crusting technique of the lateral ligaments. This did improve the medial and lateral ligamentous balancing. The spacer block fit with the knee in full extension. The knee was flexed up. A lamina maintainer plant was placed both medially and laterally. Any remaining meniscus was removed with electrocautery. Curved osteotome was used to remove any posterior osteophytes. Tibial tray and drop mery was placed and once again confirmed a satisfactory tibial cut. A size 6 narrow right femoral trial was impacted on to the femur. This had excellent fit. The box for the posterior stabilized implant was prepared using a reamer and box cut osteotome. A size 5 tibial tray trial with a 9-mm insert trial was placed, and the knee was taken through a range of motion. The knee had full extension to 130 degrees of flexion with satisfactory patellofemoral tracking. The patella was everted. 9 mm of patellar bone and cartilage was carefully removed using an oscillating saw. The patella was sized to a size 32. The 3 peg holes were drilled through the size 32 guide. Trial 32 patella was placed and the knee was taken through a range of motion. There was satisfactory patellofemoral tracking. All trials were removed. Tibia was subluxed anteriorly and sized to a size 5. Proximal tibia was prepared using a size 5 keel punch. All bony cut surfaces were copiously irrigated with sterile saline and dried. Final implants were cemented into place starting with the tibia, followed by the femur and lastly the patella. A 9-mm insert trial was placed and the knee was brought out to full extension. Tourniquet was turned down at 55 minutes. The knee was copiously irrigated with sterile saline. Electrocautery was used to obtain meticulous hemostasis. Once the cement had fully cured, the insert trial was removed. Any excess cement was removed from around the capsule and the hardware. Final insert chosen was a 9-mm constrained articular insert, size 5/6. This was locked into position on the tibial tray. Stability of the insert was checked and rechecked and noted to be stable. Final range of motion with full extension to 130 degrees of flexion. There was good medial and lateral stability. The extensor mechanism was closed using interrupted #1 Vicryl over a medium Hemovac drain. The rest of the incision was closed in a layered fashion using 0 and 2-0 Vicryls. Skin was closed using running 3-0 nylon. Xeroform, 4x4s, and Webril were placed over this. James wrap and cold pack were used to cover the dressings. The patient's anesthesia was reversed without difficulty. She was taken to the PACU in stable condition. Intended weightbearing will be weightbearing as tolerated. Intended DVT prophylaxis will be Coumadin with a Lovenox bridge. [id number]/CPS #: [id number]/CPS #: [id number] ALEX
--- NOTE | 2017-11-19 19:07 | OP ---
ADDENDUM: HARDWARE USED: This is cemented [employer]hew total knee arthroplasty hardware. Two packages of Simplex bone cement. For the femur, a size 6 narrow right posterior stabilized Legion Oxinium femoral component. For the tibia, a size 5 right tibial base plate. For the insert, a 9-mm constrained articular insert size 5/6 and for the patella, a 32-mm three-peg all-poly patella. INTRAOPERATIVE FINDINGS: Intraoperatively, the patient was noted to have severe end-stage arthritis with tri-compartmental involvement. She had lateral femoral condylar hypoplasia. Preop valgus deformity was 15 degrees and the lateral was quite significant. DESCRIPTION OF THE PROCEDURE: Ms. Johnson was identified in the preanesthesia unit. Her right lower extremity was marked as the correct operative site. Informed consent was signed and placed in the chart. The patient was taken to the operating room and placed under spinal anesthesia. A Keller catheter was placed. Tourniquet was placed on the right thigh. Right lower extremity was prepped and draped in the usual sterile fashion. Preop time-out was made to correctly identify the patient's side and site. Appropriate perioperative antibiotics were given within 1 hour of incision. Tourniquet was inflated and total tourniquet time for this procedure was 55 minutes. A midline incision was made with a 10 blade and carried down to the extensor mechanism. A new 10 blade was used make a standard medial parapatellar arthrotomy. Patella was subluxed laterally. Electrocautery was used to subperiosteally elevate the soft tissue off the superomedial tibia to the mid sagittal plane. The knee was flexed up. The anterior horn of the lateral meniscus and ACL were sharply released. A drill was used to enter the distal femur. Intramedullary distal femoral cutting guide was pinned on the distal femur. Oscillating saw was used to make the distal femoral cut. Next, the external rotation guide was pinned on the distal femur. The distal femur was sized to a size 6. Size 6 multi-cutting jig was pinned on the distal femur. Oscillating saw was used to make the appropriate chamfer cuts. Next, the PCL was completely released. The tibia was subluxed anteriorly. Intramedullary tibial cutting guide was pinned on the proximal tibia. Oscillating saw was used to make the appropriate proximal tibial cut. The knee was brought out into full extension. It was noted that there was significant tightness laterally and laxity medially. Electrocautery was used to release capsule along the posterolateral tibia. A 15 blade was used to perform a pie-crusting technique of the lateral ligaments. This did improve the medial and lateral ligamentous balancing. The spacer block fit with the knee in full extension. The knee was flexed up. A lamina counselling psychologist was placed both medially and laterally. Any remaining meniscus was removed with electrocautery. Curved osteotome was used to remove any posterior osteophytes. Tibial tray and drop mery was placed and once again confirmed a satisfactory tibial cut. A size 6 narrow right femoral trial was impacted on to the femur. This had excellent fit. The box for the posterior stabilized implant was prepared using a reamer and box cut osteotome. A size 5 tibial tray trial with a 9-mm insert trial was placed and the knee was taken through a range of motion. The knee had full extension to 130 degrees of flexion with satisfactory patellofemoral tracking. The patella was everted. 9 mm of patellar bone and cartilage was carefully removed using an oscillating saw. The patella was sized to a size 32. The 3 peg holes were drilled through the size 32 guide. Trial 32 patella was placed and the knee was taken through a range of motion. There was satisfactory patellofemoral tracking. All trials were removed. Tibia was subluxed anteriorly and sized to a size 5. Proximal tibia was prepared using a size 5 keel punch. All bony cut surfaces were copiously irrigated with sterile saline and dried. Final implants were cemented into place starting with the tibia, followed by the femur and lastly the patella. A 9-mm insert trial was placed and the knee was brought out to full extension. Tourniquet was turned down at 55 minutes. The knee was copiously irrigated with sterile saline. Electrocautery was used to obtain meticulous hemostasis. Once the cement had fully cured, the insert trial was removed. Any excess cement was removed from around the capsule and the hardware. Final insert chosen was a 9-mm constrained articular insert, size 5/6. This was locked into position on the tibial tray. Stability of the insert was checked and rechecked and noted to be stable. Final range of motion with full extension to 130 degrees of flexion. There was good medial and lateral stability. The extensor mechanism was closed using interrupted #1 Vicryl over a medium Hemovac drain. The rest of the incision was closed in a layered fashion using 0 and 2-0 Vicryls. Skin was closed using running 3-0 nylon. Xeroform, 4x4s, and Webril were placed over this. James wrap and cold pack were used to cover the dressings. The patient's anesthesia was reversed without difficulty. She was taken to the PACU in stable condition. Intended weightbearing will be weightbearing as tolerated. Intended DVT prophylaxis will be Coumadin with a Lovenox bridge. [id number]/[facility] #: [id number] [facility] HEALTH SYSTEMCoreen
[2017-11-20] MEDS: oxyCODONE/Acetamin 5/325 MG* TAB PO PRN ×5 (03:07→21:23)
[2017-11-20] MEDS: Levothyroxine TAB* 50 MCG TAB PO SCH (05:23)
[2017-11-20] MEDS: oxyCODONE TAB* 5 MG TAB PO PRN ×4 (05:23→19:16)
[2017-11-20 05:37] LABS: Hematocrit 32 % (35-47); Hemoglobin 10.8 g/dl (12.0-16.0); Mean Platelet Volume 8.6 um3 (7.4-10.4); Platelet Count 192 10^3/ul (150-450)
[2017-11-20 05:44] LABS: INR 1.16 (0.77-1.02)
[2017-11-20] MEDS: Cyclobenzaprine TAB* 10 MG PO PRN ×2 (06:56→15:13)
[2017-11-20] MEDS: Docusate CAP* 100 MG PO SCH ×2 (07:36→21:24)
[2017-11-20] MEDS: Famotidine TAB* 20 MG PO SCH ×3 (07:36→17:13)
[2017-11-20] MEDS: Magnesium Hydroxide LIQ* 30 ML UDC PO SCH ×2 (09:30→21:23)
--- NOTE | 2017-11-20 11:19 | PN ---
Progress Note - Progress Note Date of Service: 11/20/17 SOAP: Subjective: []Patient seen OOB in chair. Her pain is well controlled today. Denies chest pain, shortness of breath, dizziness, nausea. She has a bed offer at [facility] today, but patient feels more comfortable staying until tomorrow. She has confirmed with [facility] that her bed will remain available for her tomorrow. Objective: [] Vital Signs Temp 97.4 F 11/20/17 07:17 Pulse 70 11/20/17 07:17 Resp 18 11/20/17 10:30 BP 112/60 11/20/17 07:17 Pulse Ox 97 11/20/17 07:17 Intake & Output 11/19/17 11/20/17 11/20/17 18:59 06:59 18:59 Intake Total 1660 1590 240 Output Total 800 2550 250 Balance 860 -960 -10 Intake: IV Fluids 1605 990 LR 1605 990 Medicated IV 55 Cefazolin 55 Oral 600 240 Output: Urine 800 2550 250 Other: Estimated Void Medium # Voids 1 Laboratory Last Values Hgb 10.8 g/dl (12.0-16.0) L 11/20/17 04:43 Hct 32 % (35-47) L 11/20/17 04:43 Plt Count 192 10^3/ul (150-450) 11/20/17 04:43 MPV 8.6 um3 (7.4-10.4) 11/20/17 04:43 INR (Anticoag Therapy) 1.16 (0.77-1.02) H 11/20/17 04:43 Sodium 138 mmol/L (139-145) L 11/19/17 05:03 Potassium 4.3 mmol/L (3.5-5.0) 11/19/17 05:03 Chloride 105 mmol/L (101-111) 11/19/17 05:03 Carbon Dioxide 26 mmol/L (22-32) 11/19/17 05:03 Anion Gap 7 mmol/L (2-11) 11/19/17 05:03 BUN 10 mg/dL (6-24) 11/19/17 05:03 Creatinine 0.52 mg/dL (0.51-0.95) 11/19/17 05:03 Est GFR ( Amer) 151.3 (>60) 11/19/17 05:03 Est GFR (Non-Af Amer) 117.6 (>60) 11/19/17 05:03 BUN/Creatinine Ratio 19.2 (8-20) 11/19/17 05:03 Glucose 118 mg/dL (70-100) H 11/19/17 05:03 Calcium 8.9 mg/dL (8.6-10.3) 11/19/17 05:03 General: Well appearing, NAD RLE: Dressing changed by Dr Hager this morning. Dressing remains CDI. Thigh is soft. DF/PF intact. Sensation intact distally. DP 2+. Capillary refill less than two seconds distally. BL LE: Calves supple and nontender without erythema, edema or palpable cords. Assessment: []SP right total knee arthroplasty Plan: []WBAT PT/OT Lovenox, coumadin 6 mg today Patient refused discharge to [facility] today, she will go to [facility] longterm tomorrow
[2017-11-20] MEDS: Enoxaparin(*) 30 MG/0.3 ML SYR SUBCUT SCH (12:09)
[2017-11-20] MEDS ORDERED: Warfarin TAB(*) 6 MG PO SCH (17:00)
[2017-11-21] MEDS: oxyCODONE TAB* 5 MG TAB PO PRN ×2 (00:27→07:10)
[2017-11-21] MEDS: Cyclobenzaprine TAB* 10 MG PO PRN (00:28)
[2017-11-21] MEDS: oxyCODONE/Acetamin 5/325 MG* TAB PO PRN (04:13)
[2017-11-21 05:23] LABS: Hematocrit 31 % (35-47); Hemoglobin 10.5 g/dl (12.0-16.0); Mean Platelet Volume 8.3 um3 (7.4-10.4); Platelet Count 200 10^3/ul (150-450)
[2017-11-21 05:27] LABS: INR 1.36 (0.77-1.02)
[2017-11-21] MEDS ORDERED: Scopolamine PATCH Remove* 1 NOTE MISC PATCH OFF ONE (06:00)
[2017-11-21] MEDS: Levothyroxine TAB* 50 MCG TAB PO SCH (07:10)
[2017-11-21] MEDS: Famotidine TAB* 20 MG PO SCH (07:10)
[2017-11-21] MEDS: Magnesium Hydroxide LIQ* 30 ML UDC PO SCH (07:12)
[2017-11-21] MEDS: Docusate CAP* 100 MG PO SCH (07:13)
[2017-11-21 09:58] VITALS: BP 128/92
--- NOTE | 2017-11-21 12:12 | DS ---
AMENDED REPORT NOW INCLUDES COSIGNER DESIGNATION - ESIGNED BEFORE ADJUSTMENTS DISCHARGE SUMMARY: DATE OF ADMISSION: 11/18/17 DATE OF DISCHARGE: 11/21/17 ATTENDING PROVIDER: Virginia Hager MD * (DICTATED BY SEAN PEREZ) CHIEF COMPLAINT: 1. Right knee pain. 2. Hypothyroidism. 3. History of migraines. DISCHARGE DIAGNOSES: 1. Status post right total knee replacement. 2. Hypothyroidism. 3. Migraines. PROCEDURE: Right total knee arthroplasty. CONSULTATIONS: 1. Physical therapy. 2. Occupational therapy. BRIEF HISTORY: Mrs. Johnson is a very pleasant 66-year-old female with a longstanding history of severe end-stage osteoarthritis of her right knee who failed conservative treatment and elected to undergo a right total knee arthroplasty with Dr. Virginia Hager on 11/18/17. HOSPITAL COURSE: Mrs. Johnson was admitted on 11/18/17 to [facility] [place] [place] where she underwent on uncomplicated right total knee arthroplasty with an estimated blood loss of 200 cc. Postoperatively, she recovered on the surgical short stay unit. Her Keller was removed on postoperative day 2, and she was voiding on her own without difficulty. Her pain was controlled with p.o. Percocet and oxycodone. She was advanced to regular diet and restarted her home medications. Her labs and vital signs remained stable. She was able to bear weight as tolerated on the right lower extremity and advance both physical therapy and occupational therapy. Her DVT prophylaxis was managed with Lovenox and Coumadin until she reached a therapeutic INR. By postoperative day 3, she was orthopedically and medically stable for discharge to [facility]. PHYSICAL EXAMINATION: General: Well appearing, in no acute distress. Alert and oriented, resting comfortably in bed, in no acute distress. Vital Signs: Temperature 98.2, heart rate 93, respirations 16, oxygen saturation 93% on room air, blood pressure 121/74. Examination of the right lower extremity shows the dressing to be intact. Dressing was removed. Surgical incision intact with minimum drainage noted at the distal portion of the incision, minimal redness around the incision site, moderate edema noted. Negative Homans sign. Positive dorsiflexion and plantar flexion bilaterally. Posterior tibial pulses 2+. Sensation intact to light touch. LABORATORY DATA ON DATE OF DISCHARGE: Includes H and H of 10.5 and 31 with an INR of 1.36. Postoperative films taken on 11/18/17 show right total knee arthroplasty is in satisfactory positioning. DISCHARGE MEDICATIONS: 1. Cyclobenzaprine 10 mg p.o. t.i.d. p.r.n. for muscle spasm. 2. Colace 100 mg p.o. b.i.d. 3. Pepcid 20 mg p.o. t.i.d. 4. Levothyroxine 50 mcg p.o. daily. 5. Oxycodone 5 mg tablets q. 4 hours p.r.n. for pain. 6. Percocet 5/325 one to two tablets every 4 hours p.r.n. for pain. 7. Coumadin 2 mg tablets one to two tablets daily at 5 p.m. per physician's instructions. DISCHARGE CONDITION: Stable. DISCHARGE INSTRUCTIONS: Mrs. Johnson is a very pleasant 66-year-old female status post right total knee arthroplasty which is uncomplicated. She is ready for discharge today to [facility]. She will continue on Coumadin for DVT prophylaxis and will take 4 mg on 11/21/17; 2 mg on 11/22/17; 4mg on 11/23/17 and then a repeat INR check on 11/24/17. She will have pain control with Percocet 5/325 and oxycodone 5 mg and alternating. She will remain weightbearing as tolerated on the right lower extremity and have physical therapy at the rehabilitation facility. She will take Colace up to three times a day for constipation. She will follow up with Dr. Hager in approximately 10 to 14 days for incision check and suture removal. She was instructed to go immediately to the ER should she develop chest pain or shortness of breath and to call the office with any fever, increasing pain or redness around the incision site. SEAN PEREZ [id number]/[facility] #: [id number] [facility]
== END 2017-11-21 10:13 | DRG 302 ==
LOC: AA 07:27 → SSU 14:51
PROVIDERS: ADMIT Orthopaedic Surgery Adult Reconstructive Orthopaedic Surgery; ATTEND Orthopaedic Surgery Adult Reconstructive Orthopaedic Surgery
PROC: 0SRC069 Replacement of Right Knee Joint with Oxidized Zirconium on Polyethylene Synthetic Substitute, Cemented, Open Approach (ICD-10-PCS; principal; 2017-11-18 10:00)
DX: M17.11 Unilateral primary osteoarthritis, right knee (principal); M21.061 Valgus deformity, not elsewhere classified, right knee; M25.761 Osteophyte, right knee; K21.9 Gastro-esophageal reflux disease without esophagitis; G43.909 Migraine, unspecified, not intractable, without status migrainosus; E03.9 Hypothyroidism, unspecified; Z96.652 Presence of left artificial knee joint; E66.9 Obesity, unspecified; Z82.49 Family history of ischemic heart disease and other diseases of the circulatory system; Z80.3 Family history of malignant neoplasm of breast; Z90.710 Acquired absence of both cervix and uterus; Z98.42 Cataract extraction status, left eye; Z98.41 Cataract extraction status, right eye; Z88.8 Allergy status to other drugs, medicaments and biological substances; Z79.01 Long term (current) use of anticoagulants; Z87.19 Personal history of other diseases of the digestive system; Z80.42 Family history of malignant neoplasm of prostate; Z68.32 Body mass index [BMI] 32.0-32.9, adult
CPT/HCPCS: 36415; 80048; 85014; 85018; 85049; 85610; 88305; 88311; A9270-GY; C1776; G8987-GO-CJ; G8988-GO-CI; J0690; J1100; J1170; J1650; J2250; J2270; J2704; J2795

== ENCOUNTER 2019-02-16 05:39 | Inpatient (IN) | payer BC, OTHER ==
--- NOTE | 2019-02-08 19:11 | HP ---
PREOPERATIVE HISTORY AND PHYSICAL: DATE OF ADMISSION/SURGERY: 02/16/19 DATE OF OFFICE VISIT: 02/08/19 ATTENDING PHYSICIAN: Virginia Hager MD * (DICTATED BY SEAN ROACH) SURGERY SCHEDULED: Right total hip arthroplasty. CHIEF COMPLAINT: Right hip pain. HISTORY OF PRESENT ILLNESS: The patient is a 68-year-old female with 7/10 right groin pain. She has had pain for over 1 year. She has difficulty ambulating more than 1 block. She has difficulty climbing stairs and exercising. She has tried cortisone injections, physical therapy, pain medication and anti-inflammatories without relief of her pain. She elected to proceed with hip arthroplasty. PAST MEDICAL HISTORY: Significant for migraine headaches, hypercholesterolemia , Preet's thyroiditis, trochanteric bursitis right hip. CURRENT MEDICATIONS: 1. Naproxen 500 mg 1 tab b.i.d. p.r.n. pain. 2. Synthroid 25 mcg 1 by mouth every day. 3. Pepcid 20 mg b.i.d. p.r.n. reflux. ALLERGIES: COMPAZINE or similar class of medications. FAMILY HISTORY: Unknown. SOCIAL HISTORY: She lives with spouse. Denies use of tobacco, alcohol, or illicit drugs. REVIEW OF SYSTEMS: The patient has had no recent illnesses. She denies recent loss of consciousness, lightheadedness, dizziness, shortness of breath, chest pain, palpitations, gastrointestinal or genitourinary complaints. PHYSICAL EXAMINATION GENERAL: She is alert and oriented x3, in no acute distress, appropriate dress and affect. VITAL SIGNS: She is 5 feet 8 inches tall, pulse 80, BP 140/84, temperature 97.9 , weight 160. HEENT: PERRLA. EOMI. LUNGS: Clear to auscultation without wheeze. HEART: Regular rate and rhythm. No murmur auscultated. ABDOMEN: Nontender, nondistended. Normoactive bowel sounds x4 quadrants. EXTREMITIES: Right hip: Her skin is intact without open lesion or excoriation. Painful hip range of motion in all planes. She has a 2+ pedal pulse. Her calf is soft and nontender. She has active dorsiflexion of the right ankle. DIAGNOSTIC STUDIES/LAB DATA: X-ray evaluation reveals advanced osteoarthritis with [id number] contact, subchondral sclerosis. IMPRESSION: Advanced degenerative arthritis of the right hip. PLAN: The patient elected to proceed with right total hip arthroplasty on 02/[address] Virginia Hager at [facility] [place]. Risks and benefits of the procedure were fully discussed by Dr. Hager today at her preoperative office visit. All questions were answered. She will follow up in roughly 10 to 14 days postoperatively. SEAN ROACH [id number]/[facility] #: [id number] [facility]oreen
[~2019-02-16 05:39] MED LIST changes: -Acetaminophen IV 1GM/100ML * 1,000 MG/100 ML VIAL IVPB ONE; -Buffered Lidocaine 0.9% SYRIN* 5 ML/SYR SYRINGE INTRADERM ONE; +Buffered Lidocaine 1% SYRIN* 1 ML/SYRINGE INTRADERM ONE; -Dexamethasone IV* 4 MG/ML 1 ML (4 MG) IV SLOW PU ONE; -Famotidine TAB* 20 MG PO ONE; -Gabapentin CAP(*) 300 MG PO ONE; -Ondansetron INJ* 2 MG/ML VIAL IV ONE; +Tranexamic Acid 1,000 MG in NS 0.9% 50 ML* (outpatient use) IV SCH; -celeCOXIB CAP* 200 MG PO ONE
[2019-02-16] MEDS ORDERED: Acetaminophen IV 1GM/100ML * 1,000 MG/100 ML VIAL IVPB ONE (06:00)
[2019-02-16] MEDS ORDERED: celeCOXIB CAP* 200 MG PO ONE (06:00)
[2019-02-16] MEDS ORDERED: Lactated Ringers 1000 ML Bag* 1,000 ML IV SCH (06:00)
[2019-02-16] MEDS ORDERED: Gabapentin CAP(*) 300 MG PO ONE (06:00)
[2019-02-16] MEDS ORDERED: Dexamethasone IV* 4 MG/ML 1 ML (4 MG) IV SLOW PU ONE (06:00)
[2019-02-16] MEDS ORDERED: celeCOXIB CAP* 200 MG ONE (06:12)
[2019-02-16] MEDS ORDERED: Gabapentin CAP(*) 300 MG ONE (06:12)
[2019-02-16] MEDS ORDERED: Dexamethasone IV* 4 MG/ML 1 ML (4 MG) ONE (06:12)
[2019-02-16] MEDS ORDERED: Buffered Lidocaine 1% SYRIN* 1 ML/SYRINGE INTRADERM ONE (06:13)
[2019-02-16] MEDS ORDERED: ceFAZolin 2 GM in NS PREMIX(*) 2 GM/100 ML BAG IVPB ONE ×2 (06:13→14:37)
[2019-02-16] MEDS ORDERED: Acetaminophen IV 1GM/100ML * 100 ML ONE (06:35)
[2019-02-16] MEDS ORDERED: Phenylephrine 10 MG/ML VIAL* 1 ML VIAL ONE ×3 (06:45→15:30)
[2019-02-16] MEDS ORDERED: Propofol* 10 MG/ML 20 ML BTL ONE ×2 (06:47→13:56)
[2019-02-16] MEDS ORDERED: Bupivacaine 0.5% SDV PF* 30ML VIAL ONE (06:47)
[2019-02-16] MEDS ORDERED: Ondansetron INJ* 2 MG/ML VIAL ONE (06:47)
[2019-02-16] MEDS ORDERED: Midazolam* 1 MG/ML 10 ML VIAL (10 MG) ONE (06:48)
[2019-02-16] MEDS ORDERED: KETAMINE HCL* 50 MG/ML 10 ML VIAL ONE (06:48)
[2019-02-16] MEDS ORDERED: Scopolamine 1.5 mg* PATCH ONE (06:51)
[2019-02-16] MEDS ORDERED: Ropivacaine (OR use only) 2 MG/ML 10 ML ONE (07:18)
[2019-02-16] MEDS ORDERED: ROPIVACAINE 5 MG/ML 30 ML BTL (0.5%) ONE ×2 (07:19→15:22)
[2019-02-16] MEDS ORDERED: Scopolamine 1.5 mg* PATCH TRANSDERM SCH (08:00)
[2019-02-16] MEDS ORDERED: Ondansetron INJ* 2 MG/ML VIAL IV PRN ×3 (08:38→15:41)
[2019-02-16] MEDS ORDERED: HYDROmorphone INJ1* 1 MG/ML SYRINGE IV PRN ×2 (08:38→15:41)
[2019-02-16] MEDS ORDERED: DiMENhydriNATE IV* 50 MG/ML VIAL IV PUSH PRN ×2 (08:38→15:41)
[2019-02-16] MEDS ORDERED: Naloxone* 0.4 MG/ML 1 ML VIAL IV PRN ×2 (08:38→15:41)
[2019-02-16] MEDS ORDERED: Glycopyrrolate IV* 0.2 MG/ML 1 ML VIAL ONE (08:47)
[2019-02-16] MEDS ORDERED: Morphine 4 MG/ML VIAL (1 ml) 4 MG/ML VIAL IV PRN (10:45)
[2019-02-16] MEDS ORDERED: diPHENhydraMINE IV* 50 MG/ML 1 ml VIAL (BENADRYL) IV PRN (10:45)
[2019-02-16] MEDS ORDERED: Magnesium Hydroxide LIQ* 30 ML UDC PO PRN (10:45)
[2019-02-16] MEDS ORDERED: Acetaminophen TAB* 325 MG PO PRN (10:45)
[2019-02-16] MEDS ORDERED: Bisacodyl SUPP* 10 MG SUPP PR PRN (10:45)
[2019-02-16] MEDS ORDERED: fentaNYL* 50 MCG/ML 2 ML VIAL (100 MCG VIAL) ONE ×2 (11:18→17:20)
[2019-02-16] MEDS: fentaNYL* 50 MCG/ML 2 ML VIAL (100 MCG VIAL) IV PRN ×4 (11:21→17:49)
[2019-02-16] MEDS ORDERED: Sugammadex * 200 MG/2 ML VIAL IV PUSH ONE (13:53)
[2019-02-16] MEDS ORDERED: Rocuronium* 10 MG/ML VIAL ONE (13:55)
[2019-02-16] MEDS ORDERED: fentaNYL* 50 MCG/ML 5 ML VIAL (250 MCG VIAL) ONE (13:55)
[2019-02-16] MEDS ORDERED: Midazolam* 1 MG/ML 5 ML VIAL (5 MG) ONE (13:56)
[2019-02-16] MEDS ORDERED: Lidocaine 2% PF * 5 ML VIAL ONE (14:33)
[2019-02-16] MEDS ORDERED: EPHEDrine (Pressors)* 50 MG/ML VIAL ONE (14:57)
[2019-02-16] MEDS ORDERED: Phenylephrine 40 MCG/ML SYRINGE ONE (14:58)
[2019-02-16] MEDS: Lactated Ringers 1000 ML Bag* 1,000 ML IV SCH (19:27)
[2019-02-16] MEDS: oxyCODONE/Acetamin 5/325 MG* TAB PO PRN ×2 (19:35→23:52)
--- NOTE | 2019-02-16 20:25 | OP ---
Operative Report - Blank - Operative Report Date of Operation: 02/16/19 Note: RADHA WERNER 1950 Date Of Surgery: 02/16/19 Virginia Hager MD Crab Fisher: Gosia ESTRADA did help throughout the procedure with preparation of the hip, wound retraction, manipulation of the hip, and wound closure. Anesthesiologist: Gosia Clayton MD Anesthesia Type: Spinal Preoperative Diagnosis: Right severe degenerative osteoarthritis of the hip Postoperative Diagnosis: As above Procedure Performed: Right Total Hip Arthroplasty Complications: None Specimen: Femoral head and acetabular reamings sent to pathology. Hardware used: This is uncemented Salud total hip arthroplasty hardware for the femur a size 5 accolade II with 127 degree neck femoral component, for the acetabulum a size 50D trident II tritanium cluster hole shell with a 20 mm screw , for the insert a size 32D trident x3 polyethylene insert, and for the femoral head a size 32 - 4 ceramic biolox V40 femoral head. Brief history/Indication: RADHA WERNER was known in clinic and had a history of severe right hip pain. She failed conservative treatment with anti- inflammatories, pain pills, intra-articular injections and physical therapy. She elected to undergo right total hip arthroplasty due to continued pain and decreased quality of life. Radiographs showed severe end stage osteoarthritis of the hip with bone on bone contact. Informed consent was obtained from the patient. She understood the risks of surgery included but were not limited to: bleeding, infection, damage to nearby structures, intraoperative fracture, nerve palsy, failure of the hardware, early loosening, stiffness or loss of motion, dislocation, leg length discrepancy, anesthesia complications, stroke, heart attack, blood clot and . She wished to proceed. The patient had a chronically retained needle tip in her trochanteric soft tissue from many years prior. She hoped to have this removed if it was seen at the time of surgery. Intra-Operative findings: Intraoperatively the patient was noted to have severe loss of cartilage of the acetabulum and femoral head. She had laxity of her muscles and soft tissue with significant adipose tissue. The retained needle from prior years was not identified during the surgery and was not removed. Description of the Procedure: RADHA WERNER was identified in the preanesthesia unit. Her right hip was marked as the correct operative side. Informed consent was signed and placed in the chart. The patient was taken to the operating room and placed under anesthesia without complication. A watson catheter was placed. The patient was placed on the peg board with all bony prominences well padded. The right lower extremity was prepped and draped in the usual sterile fashion. Preoperative time -out was made to correctly identify the patient, side and site. Appropriate intraoperative antibiotics were given within one hour of incision. A standard posterior incision was made and carried sharply down to the lateral fascia. A new 10 blade was used to make an incision in the fascia in line with the skin incision. A charnley retractor was placed. The piriformis and conjoined tendons were identified and elevated off the posterolateral femur using electrocautery. These were tagged with number 5 Ethibond. Next electrocautery was used to make a posterolateral capsular flap and this was tagged with number 5 Ethibonds. The hip was carefully dislocated. Lesser trochanter to the center of the femoral head was measured at 55 mm. The oscillating saw was used to make the femoral neck cut. The femoral head was carefully removed. The femur was retracted anteriorly and the acetabular retractors were placed. Long-handled knife was used to sharply remove any remaining labrum from the acetabular rim. The acetabulum was sequentially reamed up to a size 50. A bleeding subchondral bone bed was obtained. A trial liner was placed and had excellent fit and stability. A 50D trident II tritanium cup with a single 20 mm screw was placed and had excellent stability with appropriate anteversion and abduction angle. A size 32 D polyethylene liner was impacted into the acetabular shell. The liner was checked for stability and was stable. Next attention was turned to preparation of the femoral canal. A canal finder was used to enter the proximal femur. The femoral canal was sequentially broached up to a size 5 femoral broach trial. A trial neck and 32 - 4 trial femoral head was chosen. Lesser trochanter to center of the femoral head measurement was satisfactory. The hip was reduced and taken through a range of motion. The hip was stable in all positions with good soft tissue tension and appropriate leg lengths. The hip was dislocated and all trials were removed. The final implant chosen was a accolade size 5 with 127 degree neck angle. This stem was impacted into the femoral canal without difficulty. The stem was stable with appropriate anteversion. The femoral head chosen was a 32 - 4 ceramic head. The head was impacted onto the femoral neck without difficulty. The final lesser trochanter to center of the femoral head measurement was satisfactory. The hip was reduced and taken through a range of motion. The hip was stable in all positions with good soft tissue tension and appropriate leg lengths. The hip was copiously irrigated with sterile saline. The previously tagged capsule and tendons were repaired to the posterolateral femur through two trochanteric drill holes. The lateral fascia layer was closed using number 1 vicryls. The rest of the incision was closed in a layered fashion using 0 and 2-0 vicryls. The skin was closed using 3-0 monocryl suture and Dermabond. Sterile adaptic, 4x4s and paper tape was used to cover the incision. The patients anesthesia was reversed without difficulty. She was taken to the PACU in stable condition. Intended weight-bearing will be as tolerated with posterior hip precautions.
[2019-02-16] MEDS: Famotidine TAB* 20 MG PO SCH (21:54)
[2019-02-16] MEDS: Docusate CAP* 100 MG PO SCH (22:02)
[2019-02-16] MEDS: Magnesium Hydroxide LIQ* 30 ML UDC PO SCH (22:02)
--- NOTE | 2019-02-16 22:37 | OP ---
DATE OF OPERATION: 02/16/19 - ROOM #[id number] DATE OF : 48 SURGEON: Virginia Hager MD LINE OUT MAN: SEAN Tierney. Ms. Lopez did help throughout the procedure with preparation of the leg, wound retraction, manipulation of the hip, and wound closure. ANESTHESIOLOGIST: Dr. Clayton. ANESTHESIA: General. PRE-OP DIAGNOSIS: Right total hip arthroplasty dislocation. POST-OP DIAGNOSIS: Right total hip arthroplasty dislocation. OPERATIVE PROCEDURE: Open reduction of right total hip arthroplasty with femoral head and liner exchange, right hip foreign body removal. COMPLICATIONS: None. ESTIMATED BLOOD LOSS: 100 cc. SPECIMEN: The patient had a known chronic retained foreign body, tip of the needle, along her lateral thigh. This had been present for approximately 5 years. PATHOLOGY: Retained needle tip sent to Pathology. Femoral head and polyethylene liner sent to Pathology. HARDWARE USED: A 38D MDM cementless liner was used for the head and MDM X3 insert, 22.2/38D with a 22.2 plus 0 offset, D40 femoral head. BRIEF HISTORY/INDICATION: Ms. Johnson is a 68-year-old female, who had uncomplicated right total hip arthroplasty earlier today. In the PACU, postoperative films were obtained. This showed an anterior dislocation of the total hip arthroplasty. The patient and I did discuss the options. I recommended open reduction with evaluation of the implants and possible exchange of femoral head and/or polyethylene liner. The patient wished to proceed. She understood the risks of surgery included, but were not limited to , bleeding, infection, damage to nearby structures, continued pain, need for further surgery, intraoperative fracture, nerve palsy, hardware failure or loosening, dislocation, leg length discrepancy, stroke, heart attack, blood clot , and . She did wish to proceed. The patient had a chronically retained needle tip in her soft tissue of the lateral thigh. She once again requested that I look for this foreign object and try to remove that. INTRAOPERATIVE FINDINGS: Intraoperatively, the patient was noted once again to have once laxity of her soft tissues and muscles around the hip. She had intact acetabular cup and femoral stem. There was no periprosthetic fracture. The implants were intact. The acetabular placement did match the patient's anatomy. Intraoperatively, the patient's retained foreign object was encountered and removed in the lateral adipose subcutaneous tissue of the thigh. This was a needle tip that the patient had known about for some years. DESCRIPTION OF PROCEDURE: Ms. Johnson was identified in the preanesthesia unit. Her right lower extremity was marked as the correct operative side. Informed consent was signed and placed in the chart. The patient was taken to the operating room and placed under anesthesia. The patient was placed in the left lateral decubitus position on the pegboard. All bony prominences were well padded. Preop timeout was made to correctly identify the patient, side and site. Appropriate preoperative antibiotics were given within 1 hour of incision. The patient's prior incision was opened with a 10 blade. Careful dissection down the lateral fascia layer was performed. Lateral fascia layer was incised and Charnley retractor was placed. The Ethibond suture for the posterior repair was carefully cut and released. The hip was dislocated in the anterior and superior position. This was easily reduced. The hip was carefully dislocated and the femoral head was removed without difficulty using a bone tamp. The proximal femur was evaluated. Femoral stem was in a satisfactory position and there was no periprosthetic fracture or loosening of the stem. The proximal femur was carefully retracted anteriorly. Evaluation of the acetabular cup was performed. There was no loosening or periprosthetic fracture. The cup was placed along the patient's anatomy without any posterior overhang of the cup. A thin osteotome was used to remove the polyethylene liner. The production finisher was screwed into acetabulum. An attempt was made to move the cup. The cup was quite stable and there was no movement or loosening of the cup. At this point, the trial MDM liner and an MDM head with a plus 0 length was chosen. The hip was reduced and taken through range of motion. Careful testing with the hip in full extension with external rotation was performed. There were no further anterior dislocations. The hip was deemed to be stable. These implants were chosen as final implants. The hip was copiously irrigated. Hip was dislocated and all trials were removed. Liner chosen was an MDM liner 38D. This was a MDM cementless liner. This was impacted into the acetabulum without difficulty. Stability of the liner was checked and rechecked and noted to be stable. Next, a 22 plus 0 offset femoral head and 22.2/38D MDM X3 polyethylene insert was prepared. This was impacted onto the femoral neck without difficulty. The hip was reduced and taken through range of motion. There was no obvious instability anteriorly or posteriorly. Soft tissues were once again noted to have laxity, but were brought out to length. There was no significant Shuck at the hip. The hip was copiously irrigated with sterile saline. The previously tagged capsule and tendons were reapproximated to the posterolateral femur using #5 Ethibond through the previously placed trochanteric drill holes. At this time, C-arm was brought in with both AP and lateral views to attempt to remove the patient's known chronic foreign body, which was presumed to be a needle tip. Using multiple C-arm views, the needle tip was identified, located and removed. This was sent to Pathology. The patient's incision was copiously irrigated with sterile saline. Lateral fascial layer was closed using interrupted #1 Vicryls. The rest of the incision was closed in layered fashion using 0 and 2-0 Vicryls. The skin was closed using running 3-0 Monocryl and Dermabond. The patient's incision was covered with Adaptic, 4x4s and paper tape. Her anesthesia was reversed without difficulty. She was taken to the PACU in stable condition. Intended weightbearing will be nonweightbearing as tolerated. Intended DVT prophylaxis will be Eliquis. [id number]/[facility] #: [id number] [facility]
[2019-02-16] MEDS: ceFAZolin 1 GM ADVAN(*) 1 GM in NS 0.9% 50 ML* 50 ML IVPB SCH (23:48)
[2019-02-17] MEDS: oxyCODONE/Acetamin 5/325 MG* TAB PO PRN ×3 (04:32→16:51)
[2019-02-17] MEDS: Lactated Ringers 1000 ML Bag* 1,000 ML IV SCH (04:36)
[2019-02-17] MEDS: ceFAZolin 1 GM ADVAN(*) 1 GM in NS 0.9% 50 ML* 50 ML IVPB SCH ×2 (06:55→16:06)
[2019-02-17 06:57] LABS: Hematocrit 32 % (35-47); Hemoglobin 10.7 g/dL (12.0-16.0); Mean Platelet Volume 8.7 fL (7.4-10.4); Platelet Count 270 10^3/uL (150-450)
[2019-02-17] MEDS: oxyCODONE TAB* 5 MG TAB PO PRN ×3 (07:24→20:24)
[2019-02-17] MEDS: Levothyroxine TAB* 25 MCG TAB PO SCH (07:24)
[2019-02-17 07:56] LABS: Calcium 8.5 mg/dL (8.6-10.3); Potassium 3.7 mmol/L (3.5-5.0)
[2019-02-17 08:02] LABS: BUN/Creatinine Ratio 10.8 (8-20); EGFR African American 109.4 (>60); EGFR Non-African American 90.4 (>60)
--- NOTE | 2019-02-17 09:08 | PN ---
Progress Note - Progress Note Date of Service: 02/17/19 SOAP: Subjective: []Pt seen at bedside, she is quite comfortable this morning. Denies any chest pain, shortness of breath, dizziness or nausea. Denies RLE numbness. Objective: []Gen: Appears well, NAD RLE: Right hip dressing CDI, no surrounding erythema, thigh soft, DF/PF intact, DP2+, sensation intact to light touch distally Calves supple and nontender without erythema, edema or palpable cords Assessment: [] POD 1 sp RTH Anterior dislocation noted in PACU brought back to OR for open reduction, femoral head and liner exchange as well as removal of chronic foreign body ( needle) Plan: []WBAT Posterior hip precautions, caution with external rotation and extension as well due to anterior dislocation Soft BP, asymptomatic. Encourage PO intake. Will bolus if not improved with PO intake/ any symptoms Vital Signs Temp 98.5 F 02/17/19 07:43 Pulse 79 02/17/19 07:43 Resp 16 02/17/19 07:43 BP 97/57 02/17/19 07:43 Pulse Ox 99 02/17/19 07:43 Intake & Output 02/16/19 02/17/19 02/17/19 18:59 06:59 18:59 Intake Total 4900 2099 55 Output Total 1100 1450 Balance 3800 649 55 Intake: IV Fluids 4900 939 ABX - CEFAZOLIN 55 LR 4800 884 NS 100ML, Cefazolin 2G 100 IVPB 55 ABX - CEFAZOLIN 55 Oral 1160 Output: Keller 1100 1450 Other: Estimated Blood Loss Minimal Comment Laboratory Last Values Hgb 10.7 g/dL (12.0-16.0) L 02/17/19 06:19 Hct 32 % (35-47) L 02/17/19 06:19 Plt Count 270 10^3/uL (150-450) 02/17/19 06:19 MPV 8.7 fL (7.4-10.4) 02/17/19 06:19 Sodium 138 mmol/L (135-145) 02/17/19 06:19 Potassium 3.7 mmol/L (3.5-5.0) 02/17/19 06:19 Chloride 107 mmol/L (101-111) 02/17/19 06:19 Carbon Dioxide 23 mmol/L (22-32) 02/17/19 06:19 Anion Gap 8 mmol/L (2-11) 02/17/19 06:19 BUN 7 mg/dL (6-24) 02/17/19 06:19 Creatinine 0.65 mg/dL (0.51-0.95) 02/17/19 06:19 Est GFR ( Amer) 109.4 (>60) 02/17/19 06:19 Est GFR (Non-Af Amer) 90.4 (>60) 02/17/19 06:19 BUN/Creatinine Ratio 10.8 (8-20) 02/17/19 06:19 Glucose 125 mg/dL (70-100) H 02/17/19 06:19 Calcium 8.5 mg/dL (8.6-10.3) L 02/17/19 06:19
[2019-02-17] MEDS: Magnesium Hydroxide LIQ* 30 ML UDC PO SCH ×2 (09:30→22:04)
[2019-02-17] MEDS: Docusate CAP* 100 MG PO SCH ×2 (09:30→22:03)
[2019-02-17] MEDS: Apixaban* 2.5 MG TAB PO SCH ×2 (09:32→22:02)
[2019-02-17] MEDS: Famotidine TAB* 20 MG PO SCH ×2 (09:33→22:02)
[2019-02-17] MEDS: Vitamin THERAPEUTIC TAB PO SCH (09:33)
[2019-02-17] MEDS: Cyclobenzaprine TAB* 10 MG PO PRN (12:48)
[2019-02-17] MEDS ORDERED: NS 0.9% 500 ML* 500 ML IV ONE (13:57)
[2019-02-18] MEDS: Levothyroxine TAB* 25 MCG TAB PO SCH (06:33)
[2019-02-18] MEDS: Cyclobenzaprine TAB* 10 MG PO PRN (07:32)
[2019-02-18] MEDS: oxyCODONE/Acetamin 5/325 MG* TAB PO PRN (07:33)
[2019-02-18 07:59] LABS: Hematocrit 30 % (35-47); Hemoglobin 10.1 g/dL (12.0-16.0); Mean Platelet Volume 8.5 fL (7.4-10.4); Platelet Count 239 10^3/uL (150-450)
[2019-02-18 08:23] VITALS: BP 108/53
--- NOTE | 2019-02-18 08:53 | PN ---
Progress Note - Progress Note Date of Service: 02/18/19 SOAP: Subjective: Patient is doing well. Pain is controlled. Denies F/C, CP/SOB or calf pain. Objective: []Gen: Appears well, NAD RLE: Right hip dressing CDI, no surrounding erythema, thigh soft, DF/PF intact, DP2+, sensation intact to light touch distally Calves supple and nontender without erythema, edema or palpable cords Vital Signs Temp Pulse Resp BP Pulse Ox 98.3 F 89 16 108/53 95 02/18/19 08:21 02/18/19 08:21 02/18/19 08:21 02/18/19 08:21 02/18/19 08:21 Laboratory Results - last 24 hr 02/18/19 07:45 Hgb 10.1 L Hct 30 L Plt Count 239 MPV 8.5 Assessment: [] POD 2 sp RTH Anterior dislocation noted in PACU brought back to OR for open reduction, femoral head and liner exchange as well as removal of chronic foreign body ( needle) Plan: []WBAT cont PT/OT Posterior hip precautions, caution with external rotation and extension as well due to anterior dislocation Eliquis for DVT prophylaxis Flexaril and percocet for pain DC to PMRU today
--- NOTE | 2019-02-18 09:03 | DS ---
Date of service: 02/18/19 Date of Admission:02/16/19 Date of Discharge: 02/18/19 Date of Surgery: 02/16/19 Attending Orthopedic Provider: Dr. Hager Pre-operative Diagnosis: Right hip OA Operative Procedure: Right total hip replacement Disposition of Patient: [facility] Condition of Patient: Stable History: RADHA WERNER is a 68 year old F with years of increasingly severe right hip pain due to OA. Patient has failed conservative management and has elected to undergo a right total hip replacement Hospital Course: RADHA was admitted to [facility] on 02/16/19. Patient underwent a right total hip replacement. Anterior dislocation noted in PACU brought back to OR for open reduction, femoral head and liner exchange as well as removal of chronic foreign body ( needle). This was followed by a brief recovery in PACU and transfer to the Short Stay Surgical Unit in stable condition. Our hospitalist service, physical therapy and occupational therapy also participated in this patients care. Post-op day 1: patient was alert and in no acute distress. Dressing was clean, dry and intact. Operative extremity dorsiflexion and plantarflexion intact, sensation intact to light touch distally , DP2+. Post-op day two: dressing was changed, incision was clean, dry and intact. Patient was deemed to be medically and orthopedically stable for discharge. Physical therapy goals were met. Discharge instructions: Weight Bearing as tolerated Wound Care: OK to shower on post-op day 3, no bathing/ swimming/ submerging wound. Use gentle soap, pat dry. Cover with gauze, RAMIN wrap or tape. Call Orthopedic office for increased drainage, redness, increased pain, or fever. Go to ER with shortness of breath or chest pain. Diet: Regular diet, increase fluids and fiber to prevent constipation. Continue to use stool softeners, call office if no bowel motion within 48 hours. Hip replacements: Continue Hip Precautions- do not cross legs or bend greater than 90 degrees/ squat caution with external rotation and extension as well due to anterior dislocation - Continue physical therapy and occupational therapy exercises as shown. DVT Prophylaxis: - Eliquis- 2.5mg twice daily x 1 month - Pain control with: Percocet 5/325 mg 1-2 tabs by mouth every 4-6 hours as needed for pain. Maximum of 10 tabs per day Please note that percocet contains tylenol (acetaminophen). Maximum daily dose of tylenol is 4000 mg from all sources. -cyclobenzaprine 10 mg 1 tab every 8 hours as needed for muscle spasms - Antibiotics required prior to any dental work. FOLLOW UP: Follow up with Dr. Hager Within 10-14 days, call for appointment Please call our office with any questions or concerns ([phone])
[2019-02-18] MEDS: Docusate CAP* 100 MG PO SCH (09:16)
[2019-02-18] MEDS: Magnesium Hydroxide LIQ* 30 ML UDC PO SCH (09:16)
[2019-02-18] MEDS: Famotidine TAB* 20 MG PO SCH (09:32)
[2019-02-18] MEDS: Vitamin THERAPEUTIC TAB PO SCH (09:32)
[2019-02-18] MEDS: Apixaban* 2.5 MG TAB PO SCH (09:32)
[2019-02-19] MEDS ORDERED: Scopolamine PATCH Remove* 1 NOTE MISC PATCH OFF ONE (06:00)
== END 2019-02-18 10:05 | DRG 301 ==
LOC: AA 05:39 → SSU 18:46
PROVIDERS: ADMIT Orthopaedic Surgery Adult Reconstructive Orthopaedic Surgery; ATTEND Orthopaedic Surgery Adult Reconstructive Orthopaedic Surgery
PROC: 0SRR03A Replacement of Right Hip Joint, Femoral Surface with Ceramic Synthetic Substitute, Uncemented, Open Approach (ICD-10-PCS; 2019-02-16)
PROC: 0SPR0JZ Removal of Synthetic Substitute from Right Hip Joint, Femoral Surface, Open Approach (ICD-10-PCS; 2019-02-16)
PROC: 0SP909Z Removal of Liner from Right Hip Joint, Open Approach (ICD-10-PCS; 2019-02-16)
PROC: 0SUA09Z Supplement Right Hip Joint, Acetabular Surface with Liner, Open Approach (ICD-10-PCS; 2019-02-16)
PROC: 0SC90ZZ Extirpation of Matter from Right Hip Joint, Open Approach (ICD-10-PCS; 2019-02-16)
PROC: 0SR904A Replacement of Right Hip Joint with Ceramic on Polyethylene Synthetic Substitute, Uncemented, Open Approach (ICD-10-PCS; principal; 2019-02-16 07:30)
DX: M16.11 Unilateral primary osteoarthritis, right hip (principal); T84.020A Dislocation of internal right hip prosthesis, initial encounter; G43.909 Migraine, unspecified, not intractable, without status migrainosus; E78.00 Pure hypercholesterolemia, unspecified; M70.71 Other bursitis of hip, right hip; E89.0 Postprocedural hypothyroidism; Z96.653 Presence of artificial knee joint, bilateral; E66.9 Obesity, unspecified; K21.9 Gastro-esophageal reflux disease without esophagitis; Y79.2 Prosthetic and other implants, materials and accessory orthopedic devices associated with adverse incidents; Z90.710 Acquired absence of both cervix and uterus; Z90.722 Acquired absence of ovaries, bilateral; Z98.42 Cataract extraction status, left eye; Z88.8 Allergy status to other drugs, medicaments and biological substances; Z98.41 Cataract extraction status, right eye; Z82.49 Family history of ischemic heart disease and other diseases of the circulatory system; Z80.3 Family history of malignant neoplasm of breast; Z80.8 Family history of malignant neoplasm of other organs or systems; Z83.49 Family history of other endocrine, nutritional and metabolic diseases; Z68.32 Body mass index [BMI] 32.0-32.9, adult; Z18.11 Retained magnetic metal fragments; Z87.440 Personal history of urinary (tract) infections; Y92.9 Unspecified place or not applicable
CPT/HCPCS: 36415; 72170; 76000; 80048; 85014; 85018; 85049; 88300; 88304; 88311; A9270-GY; C1713; C1776; G8978-GP-CK; G8979-GP-CI; G8987-GO-CL; G8988-GO-CI; J0690; J1100; J2250; J2405; J2704; J2795; J3010; J3490